=== PATIENT | female | born 1985 | race Caucasian/White ===

== ENCOUNTER 2017-02-03 01:16 | Inpatient (IN) | payer OTHER ==
[2017-02-03] MEDS ORDERED: Nalbuphine 20 MG/1 ML Amp IVPUSH PRN (01:44)
[2017-02-03] MEDS ORDERED: Ondansetron 4 MG/2 ML SDV IVPUSH PRN (01:44)
[2017-02-03] MEDS ORDERED: Sodium Chloride 0.9% 10 ML Syringe FLUSH PRN (01:44)
[2017-02-03] MEDS ORDERED: Oxytocin/Lactated Ringers 10 UNIT/1,000 ML BAG IV SCH (01:45)
[2017-02-03] MEDS: Lactated Ringers 1,000 ML IV SCH ×4 (02:43→07:25)
[2017-02-03] MEDS ORDERED: Sodium Chloride 0.9% 10 ML ONE (04:04)
--- NOTE | 2017-02-03 04:13 | PCM.PREANE ---
Preanesthetic Assessment - Procedure Proposed Procedure: Continuous labor Epidural - Anesthesia/Transfusion/Family Hx Anesthesia History: Prior Anesthesia Without Reaction Transfusion History: No Prior Transfusion(s) - Review of Systems General: No Symptoms Pulmonary: No Symptoms Cardiovascular: No Symptoms Gastrointestinal: No symptoms Neurological: No Symptoms Other: Reports: None - Physical Assessment O2 Sat by Pulse Oximetry: 98 Respiratory Rate: 14 Vital Signs: Last Vital Signs Temp 36.9 C 02/03/17 01:44 Pulse 96 02/03/17 01:44 Resp 14 02/03/17 01:44 BP 122/83 02/03/17 01:44 Pulse Ox 98 02/03/17 01:44 Height: 1.55 m Weight: 92.533 kg ASA Class: 2 Mental Status: Alert & Oriented x3 Airway Class: Mallampati = 1 Dentition: Reports: Normal Dentition, [place](s) (on upper front broken tooth) Thyro-Mental Finger Breadths: 3 Mouth Opening Finger Breadths: 3 ROM/Head Extension: Full Lungs: Clear to auscultation, Normal respiratory effort Cardiovascular: Regular Rate, Regular Rhythm, No Murmurs - Lab Values: Laboratory Last Values WBC 8.56 K/mm3 (3.98-10.04) 02/03/17 02:25 RBC 4.15 M/mm3 (3.98-5.22) 02/03/17 02:25 Hgb 12.5 gm/L (11.2-15.7) 02/03/17 02:25 Hct 36.2 % (34.1-44.9) 02/03/17 02:25 MCV 87.2 fl (79.4-94.8) 02/03/17 02:25 MCH 30.1 pg (25.6-32.2) 02/03/17 02:25 MCHC 34.5 g/dl (32.2-35.5) 02/03/17 02:25 RDW Std Deviation 40.9 fL (36.4-46.3) 02/03/17 02:25 Plt Count 218 K/mm3 (182-369) 02/03/17 02:25 MPV 10.4 fl (9.4-12.3) 02/03/17 02:25 Neut % (Auto) 55.6 % (34.0-71.1) 02/03/17 02:25 Lymph % (Auto) 34.7 % (19.3-51.7) 02/03/17 02:25 [place] % (Auto) 9.0 % (4.7-12.5) 02/03/17 02:25 Eos % (Auto) 0.4 (0.7-5.8) L 02/03/17 02:25 Baso % (Auto) 0.1 % (0.1-1.2) 02/03/17 02:25 Neut # (Auto) 4.76 K/mm3 (1.56-6.13) 02/03/17 02:25 Lymph # (Auto) 2.97 K/mm3 (1.18-3.74) 02/03/17 02:25 [place] # (Auto) 0.77 K/mm3 (0.24-0.36) H 02/03/17 02:25 Eos # (Auto) 0.03 K/mm3 (0.04-0.36) L 02/03/17 02:25 Baso # (Auto) 0.01 K/mm3 (0.01-0.08) 02/03/17 02:25 - Allergies Allergies/Adverse Reactions: Allergies Allergy/AdvReac Type Severity Reaction Status Date / Time bacitracin Allergy Itching Verified 05/29/14 21:21 sulfamethoxazole Allergy Rash Verified 02/06/15 18:17 [From Bactrim] trimethoprim [From Bactrim] Allergy Rash Verified 02/06/15 18:17 - Blood Blood Available: No - Acknowledgements Anesthesia Type Planned: Epidural Pt an Appropriate Candidate for the Planned Anesthesia: Yes Alternatives and Risks of Anesthesia Discussed w Pt/Guardian: Yes Pt/Guardian Understands and Agrees with Anesthesia Plan: Yes PreAnesthesia Questionnaire Endocrine/Metabolic History: Reports: Obesity/BMI 30+ - Past Surgical History HEENT Surgical History: Reports: Adenoidectomy, Tonsillectomy, Other (See Below) Other HEENT Surgeries/Procedures: [place] teeth extraction GI Surgical History: Reports: Hernia, Inguinal Female Surgical History: Reports: Breast Biopsy, LEEP, Other (See Below) ( pilonidal cyst escision) Dermatological Surgical History: Reports: Other (See Below) - SUBSTANCE USE Smoking Status *Q: Never Smoker Tobacco Use Within Last Twelve Months: No Second Hand Smoke Exposure: No Days Per Week of Alcohol Use: 0 Recreational Drug Use History: No - HOME MEDS Home Medications: Home Meds Silver Sulfadiazine [Silvadene 1% Cream] 1 applic TOP DAILY #1 tube 02/06/15 [Rx ] oxyCODONE HCl/Acetaminophen [Percocet 5-325 mg Tablet] 1 - 2 each PO Q4HR PRN # 15 tablet 02/06/15 [Rx] - CURRENT (IN HOUSE) MEDS Current Meds: Current Medications Lactated Ringer's (Ringers, Lactated) 1,000 mls @ 100 mls/hr IV ASDIRECTED [facility] Last Admin: 02/03/17 02:43 Dose: 100 mls/hr Oxytocin/Lactated Ringer's (Pitocin In Lr 10 Units/1,000 Ml) 10 unit in 1,000 mls @ 500 mls/hr IV TITRATE [facility] Nalbuphine HCl (Nubain) 10 mg IVPUSH Q2H PRN PRN Reason: Pain (moderate 4-6) Ondansetron HCl (Zofran) 4 mg IVPUSH Q4H PRN PRN Reason: Nausea/Vomiting Sodium Chloride (Saline Flush) 10 ml FLUSH ASDIRECTED PRN PRN Reason: Keep Vein Open
[2017-02-03] MEDS ORDERED: Bupivacaine/fentaNYL/NS 100 ML Bag EPIDUR SCH (04:15)
--- NOTE | 2017-02-03 07:43 | PCM.LDHP ---
L&D History of Present Illness - General Date of Service: 02/03/17 Admit Problem/Dx: Patient Status Order with Admit Dx/Problem 02/03/17 01:44 Patient Status [ADT] Routine Admission Diagnosis/Problem Admission Diagnosis/Problem Source of Information: Patient History Limitations: Reports: No Limitations - History of Present Illness Introduction:: Chani is a 31-year-old 2 now para 1001 white female who is admitted in active labor with spontaneous rupture membranes She reports having been sleeping at approximately 0045 hours on 02/03/2017 when she had a gush of fluid followed by continuous leakage of fluid consistent with spontaneous rupture membranes. Fluid was reported to be clear. She is not sarah approximately every 3 minutes. She has progressed rapidly to complete cervical dilation. Baby was at a +2 station. heart tones are reassuring. [employer] history 2 para 1001 with STEPHAN of 02/03/2017 is based upon a last menstrual period starting 04/29/2016. Patient had ultrasounds supportive of her dating. has been unremarkable. She is made good fundal height growth. Weight gain has been from approximately 186.5 pounds 2 196 pounds for 10 pound weight gain. Fundal height growth has been appropriate and vital signs have been stable. She has 1 previous delivery a 6 lbs. 15 oz. female delivered on 05/30/2014 at 38-0/7 weeks gestational age. Laboratory testing and : Blood is AB+. Advised screen is negative. Hemoglobin at first visit was 13.7 and platelets were 290,000. Rubella titer shows immunity. RPR is nonreactive. Hepatitis B surface antigen assay was negative. Second trimester lab testing included a hemoglobin of 12.4 g/dL. Platelets are 229,000. One hour GTT was normal at 95. Antibody screen was negative. Group B strep screen was negative. HIV titer, chlamydia, gonorrhea is not detected. Past medical history: 1. Benign breast lump right breastexcised 2. Normal spontaneous vaginal delivery 2013 Past surgical history: 1. Rest biopsy right breastbenign 2. Tonsillectomy adenoidectomy 3. [place] tooth extraction 4. Right inguinal hernia repair age 9 Allergies: Bactrim which causes itching Medications: 1. vitamins daily Family history: Mother is alive and well but does suffer from depression. Father has hypertension and is obese. One brother is alive and well. Maternal grandparents health history not known. Internal grandmother is secondary to breast cancer. Paternal grandfather is for reasons unknown. There is family history of heart disease and diabetes. No bleeding disorders, blood clotting disorders, anesthesia or -related problems reported in the family. Social history: Patient is . Lives in [place]. Her significant other is Alvino Burks. She does not use any significant loss of alcohol, drugs or tobacco. Review of systems: Skin-negative Cardiovascular-no exercise intolerance, chest pain or shortness of breath Respiratoryno wheezing, infectious symptoms Breasts-changes associated with -patient plans to nurse GI-negative -changes associated with Musculoskeletal -negative Neurological system -negative Physical exam: In general the patient is a well-developed, well-nourished, pleasant female who appears comfortable with epidural on board. HEENT, neck and back within normal limits Skin is warm and dry without lesions. Lungs are clear with good breath sounds in all lung [place]. Cardiovascular exam shows regular without murmurs. Breast exam is deferred. Abdomen is consistent with with fundal height consistent with dates. Cervical exam shows complete cervical dilation, 100% effacement, +2 station, vertex presentation. Extremities and neurological exam grossly within normal limits. - Related Data Allergies/Adverse Reactions: Allergies Allergy/AdvReac Type Severity Reaction Status Date / Time bacitracin Allergy Itching Verified 05/29/14 21:21 sulfamethoxazole Allergy Rash Verified 02/06/15 18:17 [From Bactrim] trimethoprim [From Bactrim] Allergy Rash Verified 02/06/15 18:17 Home Medications: Home Meds Silver Sulfadiazine [Silvadene 1% Cream] 1 applic TOP DAILY #1 tube 02/06/15 [Rx ] oxyCODONE HCl/Acetaminophen [Percocet 5-325 mg Tablet] 1 - 2 each PO Q4HR PRN # 15 tablet 02/06/15 [Rx] Past Medical History Endocrine/Metabolic History: Reports: Obesity/BMI 30+ - Past Surgical History HEENT Surgical History: Reports: Adenoidectomy, Tonsillectomy, Other (See Below) Other HEENT Surgeries/Procedures: [place] teeth extraction GI Surgical History: Reports: Hernia, Inguinal Female Surgical History: Reports: Breast Biopsy, LEEP, Other (See Below) ( pilonidal cyst escision) Dermatological Surgical History: Reports: Other (See Below) Social & Family History - Family History Family Medical History: Noncontributory - Tobacco Use Smoking Status *Q: Never Smoker Second Hand Smoke Exposure: No - Caffeine Use Caffeine Use: Reports: Soda Other Caffeine Use: occasional - Alcohol Use Days Per Week of Alcohol Use: 0 - Recreational Drug Use Recreational Drug Use: No H&P Review of Systems - Review of Systems: Review Of Systems: See Below L&D Exam - Exam Exam: See Below - Vital Signs Vital Signs: Last Vital Signs Temp 36.9 C 02/03/17 01:44 Pulse 96 02/03/17 01:44 Resp 14 02/03/17 04:14 BP 122/83 02/03/17 01:44 Pulse Ox 98 02/03/17 04:14 Weight: 92.533 kg - Patient Data Lab Results Last 24 hrs: Laboratory Results - last 24 hr 02/03/17 Range/Units 02:25 WBC 8.56 (3.98-10.04) K/mm3 RBC 4.15 (3.98-5.22) M/mm3 Hgb 12.5 (11.2-15.7) gm/L Hct 36.2 (34.1-44.9) % MCV 87.2 (79.4-94.8) fl MCH 30.1 (25.6-32.2) pg MCHC 34.5 (32.2-35.5) g/dl RDW Std Deviation 40.9 (36.4-46.3) fL Plt Count 218 (182-369) K/mm3 MPV 10.4 (9.4-12.3) fl Neut % (Auto) 55.6 (34.0-71.1) % Lymph % (Auto) 34.7 (19.3-51.7) % [place] % (Auto) 9.0 (4.7-12.5) % Eos % (Auto) 0.4 L (0.7-5.8) Baso % (Auto) 0.1 (0.1-1.2) % Neut # (Auto) 4.76 (1.56-6.13) K/mm3 Lymph # (Auto) 2.97 (1.18-3.74) K/mm3 [place] # (Auto) 0.77 H (0.24-0.36) K/mm3 Eos # (Auto) 0.03 L (0.04-0.36) K/mm3 Baso # (Auto) 0.01 (0.01-0.08) K/mm3 Result Diagrams: 02/03/17 02:25 Problem List Initiated/Reviewed/Updated: Yes Orders Last 24hrs: Active Orders 24 hr Category Date Time Status Patient Status [ADT] Routine ADT 02/03/17 01:44 Active Activity as Tolerated [RC] PFP Care 02/03/17 01:44 Active Communication Order [RC] ASDIRECTED Care 02/03/17 01:44 Active Communication Order [RC] ASDIRECTED Care 02/03/17 04:07 Active Cooling Warming Measures [RC] ASDIRECTED Care 02/03/17 04:07 Active Heart Tones [RC] ASDIRECTED Care 02/03/17 01:45 Active Notify Provider [RC] ASDIRECTED Care 02/03/17 04:07 Active Notify Provider [RC] PFP Care 02/03/17 01:44 Active Notify Provider [RC] PRN Care 02/03/17 01:44 Active Oxygen Therapy [RC] ASDIRECTED Care 02/03/17 04:07 Active Peripheral IV Care [RC] . DIRECTED Care 02/03/17 01:45 Active Pulse Oximetry [RC] ASDIRECTED Care 02/03/17 04:07 Active Vital Signs [RC] ASDIRECTED Care 02/03/17 04:07 Active Vital Signs [RC] PER UNIT ROUTINE Care 02/03/17 01:44 Active Clear Liquid Diet [DIET] Diet 02/03/17 Breakfast Active Bupivacaine/fentaNYL/NS [fentaNYL/Bupivacaine/NS 2 MCG- Med 02/03/17 04:15 Active 0.125% 100 ML] 100 ml EPIDUR ASDIRECTED Lactated Ringers [Ringers, Lactated] 1,000 ml Med 02/03/17 01:45 Active IV ASDIRECTED Nalbuphine [Nubain] Med 02/03/17 01:44 Active 10 mg IVPUSH Q2H PRN Ondansetron [Zofran] Med 02/03/17 01:44 Active 4 mg IVPUSH Q4H PRN Oxytocin/Lactated Ringers [Pitocin in LR 10 Units/1,000 Med 02/03/17 01:45 Active ML] 10 unit in 1,000 ml IV TITRATE Sodium Chloride 0.9% [Saline Flush] Med 02/03/17 01:44 Active 10 ml FLUSH ASDIRECTED PRN Electronic Heart Tones Ext w TOCO [WOMSER] Ot 02/03/17 01:44 Ordered Routine Electronic Heart Tones Internal [WOMSER] Per Unit Ot 02/03/17 01:44 Ordered Routine Peripheral IV Insertion Adult [OM.PC] Routine Ot 02/03/17 01:44 Ordered Pulse Oximetry Continuous Monitoring [OM.PC] Routine Ot 02/03/17 04:07 Active Resuscitation Status Routine Resus Stat 02/03/17 01:44 Ordered Medication Orders Fentanyl/Bupivacaine HCl (Fentanyl/Bupivacaine/Ns 2 Mcg-0.125% 100 Ml) 100 ml EPIDUR ASDIRECTED [facility] Last Admin: 02/03/17 04:43 Dose: 100 ml Lactated Ringer's (Ringers, Lactated) 1,000 mls @ 100 mls/hr IV ASDIRECTED [facility] Last Admin: 02/03/17 07:25 Dose: 100 mls/hr Infusion: 02/03/17 07:25 Dose: 100 mls/hr Admin: 02/03/17 04:59 Dose: 100 mls/hr Infusion: 02/03/17 04:59 Dose: 100 mls/hr Admin: 02/03/17 04:15 Dose: 100 mls/hr Infusion: 02/03/17 04:15 Dose: 100 mls/hr Admin: 02/03/17 02:43 Dose: 100 mls/hr Oxytocin/Lactated Ringer's (Pitocin In Lr 10 Units/1,000 Ml) 10 unit in 1,000 mls @ 500 mls/hr IV TITRATE [facility] Nalbuphine HCl (Nubain) 10 mg IVPUSH Q2H PRN PRN Reason: Pain (moderate 4-6) Ondansetron HCl (Zofran) 4 mg IVPUSH Q4H PRN PRN Reason: Nausea/Vomiting Sodium Chloride (Saline Flush) 10 ml FLUSH ASDIRECTED PRN PRN Reason: Keep Vein Open Assessment/Plan Comment:: Assessment: 1. 2 para 1001 Term intrauterine at 40-0/7 weeks gestational age by certain last menstrual periodactive laborcomplete cervical dilation 2. Epidural working well patient getting good relief 3. Group B strep screen negative 4. Patient desires to nurse 5. Diabetic screening test normal. Plan: 1. Anticipate normal spontaneous vaginal delivery 2. Support nursing decision. 3. Epidural for labor analgesia.
--- NOTE | 2017-02-03 09:00 | PCM.SN ---
- Free Text/Narrative Note: Chani is a 31-year-old 2 now para 2002 white female who had spontaneous rupture membranes at approximately 00 45 hours on 02/03/2017. She is admitted into labor and delivery in active labor shortly thereafter. She progressed to complete cervical dilation by approximately 8:00 on 02/03/2017. She pushed for approximate 45 minutes and delivered a viable, santos, male with a weight of 3410 g (7 pounds 8.3 ounces), a length of 20 inches, Apgars of 8 and 9 in a left occiput anterior position. Baby completely delivered without problems and was placed on the mother's abdomen. The cord was clamped 2 and cut by the father. Cord was noted to have 3 vessels present. Perineum was intact and no lacerations were present. The placenta delivered at 0836 hrs. in a [place] fashion. It appeared intact and complete. It was discarded per patient desire. Estimated blood loss was 100 mL. Pitocin was given after delivery of the baby to facilitate increase in uterine tone and 2 decrease bleeding. Epidural was used for labor and analgesia. Epidural catheter was removed after the delivery of the placenta. Estimated blood loss was 100 mL. Patient plans to nurse. Condition: Good
[2017-02-03] MEDS ORDERED: Docusate Sodium 100 MG Cap PO PRN (09:31)
[2017-02-03] MEDS ORDERED: Acetaminophen 325 MG Tab PO PRN (09:31)
[2017-02-03] MEDS ORDERED: Lanolin 100% Cream 7 GM Tube TOP PRN (09:31)
[2017-02-03] MEDS ORDERED: Benzocaine/Menthol 20%-0.5% Spray 56 GM Canister TOP PRN (09:31)
[2017-02-03] MEDS ORDERED: Witch Hazel Medicated Pads 100/Jar TOP PRN (09:31)
[2017-02-03] MEDS: Ibuprofen 600 MG Tab PO PRN ×2 (13:00→21:12)
[2017-02-04 04:00] VITALS: BP 119/62
[2017-02-04] MEDS: Ibuprofen 600 MG Tab PO PRN ×2 (04:37→09:24)
--- NOTE | 2017-02-04 08:06 | PCM.DCSUM1 ---
Discharge Summary - Hospital Course Free Text/Narrative:: Chani is a 31-year-old 2 now para 2002 white female who had spontaneous rupture membranes at approximately 00 45 hours on 02/03/2017. She is admitted into labor and delivery in active labor shortly thereafter. She progressed to complete cervical dilation by approximately 8:00 on 02/03/2017. She pushed for approximate 45 minutes and delivered a viable, santos, male infant with a weight of 3410 g (7 pounds 8.3 ounces), a length of 20 inches, Apgars of 8 and 9 in a left occiput anterior position. Baby completely delivered without problems and was placed on the mother's abdomen. The cord was clamped 2 and cut by the father. Cord was noted to have 3 vessels present. Perineum was intact and no lacerations were present. The placenta delivered at 0836 hrs. in a [place] fashion. It appeared intact and complete. It was discarded per patient desire. Estimated blood loss was 100 mL. Pitocin was given after delivery of the baby to facilitate increase in uterine tone and 2 decrease bleeding. Epidural was used for labor and analgesia. Epidural catheter was removed after the delivery of the placenta. Estimated blood loss was 100 mL. Patient plans to nurse. Condition: Good patient is done very well. She has had minimal lochia. She is voiding well, nursing without problems and ambulating without concerns. Her vital signs been stable. She is afebrile. She is desiring to be discharged home. - Discharge Data Discharge Date: 02/04/17 Discharge Disposition: Home, Self-Care 01 Condition: Good - Patient Instructions Diet: Regular Diet as Tolerated (Nursing diet with increase calories and calcium.) Activity: As Tolerated (No intercourse or tampons until bleeding resolves.) Driving: May Drive Today (May drive today if necessary. Would recommend waiting 2 days.) Showering/Bathing: May Shower (May take a bath) Notify Provider of: Fever, Increased Pain, Swelling and Redness, Nausea and/or Vomiting - Discharge Plan Home Medications: Home Meds Ibuprofen [IJD: Ibuprofen] 600 mg PO Q4H PRN #30 tablet 02/04/17 [Rx] Referrals: Marilee Goss MD [Physician] - (Return to cliniclater this week- Dr Kay.) - Discharge Summary/Plan Comment DC Time >30 min.: No Discharge Summary/Plan Comment: Discharge instructions: 1. Discharge home. 2. Regular, high fiber, nursing diet with increased calcium and calories as recommended. 3. Diet, activity and follow-up were discussed in detail with patient. 4. Precautions given concern increased pain, bleeding, temperature, signs/ symptoms of DVT/PE. 5. Medications per home medication was printed, discussed with and given to the patient. 6. Return to clinic-Dr. Baca-6 weeks-[facility]. Diagnosis: 39 week -delivered Condition: Good - Patient Data Vitals - Most Recent: Last Vital Signs Temp 37.1 C 02/04/17 04:00 Pulse 94 02/04/17 03:31 Resp 12 02/04/17 03:31 BP 119/62 02/04/17 03:31 Pulse Ox 99 02/04/17 03:31 Weight - Most Recent: 92.533 kg I&O - Last 24 hours: Intake & Output 02/03/17 02/04/17 02/04/17 22:59 06:59 14:59 Intake Total 0 Balance 0 Lab Results - Last 24 hrs: Laboratory Results - last 24 hr 02/04/17 Range/Units 07:10 WBC 8.56 (3.98-10.04) K/mm3 RBC 3.82 L (3.98-5.22) M/mm3 Hgb 11.3 (11.2-15.7) gm/L Hct 34.1 (34.1-44.9) % MCV 89.3 (79.4-94.8) fl MCH 29.6 (25.6-32.2) pg MCHC 33.1 (32.2-35.5) g/dl RDW Std Deviation 43.0 (36.4-46.3) fL Plt Count 174 L (182-369) K/mm3 MPV 10.0 (9.4-12.3) fl Med Orders - Current: Current Medications Acetaminophen (Tylenol) 650 mg PO Q4H PRN PRN Reason: mild pain or fever Last Admin: 02/03/17 23:17 Dose: 650 mg Benzocaine/Menthol (Dermoplast Pain Relief [place]) 0 gm TOP ASDIRECTED PRN PRN Reason: Perineal Comfort Measure Docusate Sodium (Colace) 100 mg PO BID PRN PRN Reason: Constipation Emollient Ointment (Lansinoh Hpa) 0 gm TOP ASDIRECTED PRN PRN Reason: Sore Nipples Ibuprofen (Motrin) 600 mg PO Q4H PRN PRN Reason: Mild pain or fever Last Admin: 02/04/17 04:37 Dose: 600 mg Witch Jody (Tucks) 1 pad TOP ASDIRECTED PRN PRN Reason: Hemorrhoid pain Discontinued Medications Fentanyl/Bupivacaine HCl (Fentanyl/Bupivacaine/Ns 2 Mcg-0.125% 100 Ml) 100 ml EPIDUR ASDIRECTED [facility] Last Admin: 02/03/17 04:43 Dose: 100 ml Lactated Ringer's (Ringers, Lactated) 1,000 mls @ 100 mls/hr IV ASDIRECTED [facility] Last Admin: 02/03/17 07:25 Dose: 100 mls/hr Oxytocin/Lactated Ringer's (Pitocin In Lr 10 Units/1,000 Ml) 10 unit in 1,000 mls @ 500 mls/hr IV TITRATE [facility] Last Admin: 02/03/17 08:35 Dose: 500 mls/hr Sodium Chloride (Normal Saline) Confirm Administered Dose 10 mls @ as directed .ROUTE .STK-MED ONE Stop: 02/03/17 04:05 Last Admin: 02/03/17 18:34 Dose: Not Given Nalbuphine HCl (Nubain) 10 mg IVPUSH Q2H PRN PRN Reason: Pain (moderate 4-6) Ondansetron HCl (Zofran) 4 mg IVPUSH Q4H PRN PRN Reason: Nausea/Vomiting Sodium Chloride (Saline Flush) 10 ml FLUSH ASDIRECTED PRN PRN Reason: Keep Vein Open *Q Meaningful Use (DIS) - VTE *Q VTE Criteria *Q: - Stroke *Q Stroke Criteria *Q: - AMI *Q AMI Criteria *Q:
--- NOTE | 2017-02-04 08:34 | PCM48HPAN ---
Post Anesthesia Note - EVALUATION WITHIN 48HRS OF ANESTHETIC Vital Signs in Normal Range: Yes Patient Participated in Evaluation: Yes Respiratory Function Stable: Yes Airway Patent: Yes Cardiovascular Function Stable: Yes Hydration Status Stable: Yes Pain Control Satisfactory: Yes Nausea and Vomiting Control Satisfactory: Yes Mental Status Recovered: Yes - COMMENTS/OBSERVATIONS Free Text/Narrative:: Both mother and baby doing well. Pt reports epidural has completely resolved with return of normal sensation and strength. has been up to bathroom without difficulty. reports minor soreness at epidural site. site looks good. no fever /chills, n/v, or headache.
[2017-02-04] MEDS ORDERED: Bupivacaine 0.25% 10 ML SDV ONE (09:31)
== END 2017-02-04 12:00 | disposition home or self-care (01) | DRG 775 ==
LOC: JD.OBCHECK 01:16 → JD.OB 01:16 → JD.OBCHECK 01:43 → JD.OB 01:44 → OBSVTOIN 08:34
PROVIDERS: ADMIT Obstetrics & Gynecology; ATTEND Obstetrics & Gynecology
PROC: 10E0XZZ Delivery of Products of Conception, External Approach (ICD-10-PCS; principal; 2017-02-03)
PROC: 00HU33Z Insertion of Infusion Device into Spinal Canal, Percutaneous Approach (ICD-10-PCS; 2017-02-03)
PROC: 3E0R3CZ (ICD-10-PCS; 2017-02-03)
DX: O42.02 Full-term premature rupture of membranes, onset of labor within 24 hours of rupture (principal); Z3A.40 40 weeks gestation of pregnancy; Z37.0 Single live birth; Z88.1 Allergy status to other antibiotic agents
CPT/HCPCS: 01967; 36415; 85025; 85027; A9270-GY; J2590; J7120

== ENCOUNTER 2020-09-24 21:15 | Inpatient (IN) | payer OTHER ==
[2020-09-24] MEDS ORDERED: Sodium Chloride 0.9% 10 ML Syringe FLUSH PRN (21:56)
[2020-09-24] MEDS ORDERED: Nalbuphine 10 MG/1 ML Vial IVPUSH PRN (21:56)
[2020-09-24] MEDS ORDERED: Acetaminophen 325 MG Tab PO PRN (21:56)
[2020-09-24] MEDS ORDERED: Oxytocin/Lactated Ringers 10 UNIT/1,000 ML BAG IV SCH ×2 (22:00→23:45)
--- NOTE | 2020-09-24 22:06 | PCM.PREANE ---
Preanesthetic Assessment - Procedure Proposed Procedure: Continuous labor epidural - Anesthesia/Transfusion/Family Hx Anesthesia History: Prior Anesthesia Without Reaction Transfusion History: No Prior Transfusion(s) - Review of Systems General: No Symptoms Pulmonary: No Symptoms Cardiovascular: No Symptoms Gastrointestinal: No Symptoms Neurological: No Symptoms Other: Reports: None - Physical Assessment Height: 1.55 m Weight: 92.941 kg ASA Class: 2 Mental Status: Alert & Oriented x3 Airway Class: Mallampati = 1 Dentition: Reports: Normal Dentition, Mckenney(s), Broken Tooth/Teeth Thyro-Mental Finger Breadths: 3 Mouth Opening Finger Breadths: 3 ROM/Head Extension: Full Lungs: Clear to Auscultation, Normal Respiratory Effort Cardiovascular: Regular Rate, Regular Rhythm - Allergies Allergies/Adverse Reactions: Allergies Allergy/AdvReac Type Severity Reaction Status Date / Time bacitracin Allergy Itching Verified 05/29/14 21:21 sulfamethoxazole Allergy Rash Verified 02/06/15 18:17 [From Bactrim] trimethoprim [From Bactrim] Allergy Rash Verified 02/06/15 18:17 - Acknowledgements Anesthesia Type Planned: Epidural Pt an Appropriate Candidate for the Planned Anesthesia: Yes Alternatives and Risks of Anesthesia Discussed w Pt/Guardian: Yes Pt/Guardian Understands and Agrees with Anesthesia Plan: Yes PreAnesthesia Questionnaire Endocrine/Metabolic History: Reports: Obesity/BMI 30+ - Past Surgical History HEENT Surgical History: Reports: Adenoidectomy, Tonsillectomy, Other (See Below) Other HEENT Surgeries/Procedures: [place] teeth extraction GI Surgical History: Reports: Hernia, Inguinal Female Surgical History: Reports: Breast Biopsy, LEEP, Other (See Below) (pilonidal cyst escision) Dermatological Surgical History: Reports: Other (See Below) - HOME MEDS Home Medications: Home Meds Ibuprofen [IJD: Ibuprofen] 600 mg PO Q4H PRN #30 tablet 02/04/17 [Rx]
--- NOTE | 2020-09-24 22:16 | PCM.LDHP ---
L&D History of Present Illness - General Date of Service: 09/24/20 Admit Problem/Dx: Patient Status Order with Admit Dx/Problem 09/24/20 21:56 Patient Status [ADT] Routine Admission Diagnosis/Problem Admission Diagnosis/Problem 38 weeks gestation of Source of Information: Patient History Limitations: Reports: No Limitations - History of Present Illness Introduction:: Chani Burks is a 35-year-old -0-0-2 female at 38 weeks 4 days (STEPHAN 10/04/2020) by LMP consistent with her anatomy ultrasound. She reports that she had some leaking of fluid when she was sitting on the couch and then when she went to the restroom she had a large gush of clear fluid. She states that the fluid has been continuously leaking since that initial gush. She denies any vaginal bleeding. She reports that the infant has been moving well. She reports that the may have dropped a little bit lower into the pelvis since this afternoon. She feels like she is having some cramping but no significant contractions at this time. Timing/Duration: Reports: sudden onset (With a large gush of fluid at around 830 with continuous leaking since then) Location, : Reports: Pelvic Quality: Reports: Pressure Severity: Mild Associated Symptoms: Reports: vaginal fluid, large amount. Denies: vaginal bleeding, vaginal discharge Present Illness Comments:: Chani Burks is a 35-year-old -0-0-2 female at 38 weeks 4 days (STEPHAN 10/04/2020) by LMP consistent with her anatomy ultrasound. She has had routine care with Dr. Chino starting at 10 weeks gestational age. She denies any complications during the . She reports that she did have COVID-19 infection in April 2020. She did not have any significant complications from the infection but has not regained the smell since she had the infection. Her is complicated by: * History of COVID-19 infection in April 2020 with no significant effects at time of infection. She did lose sense of smell and has not regained her sense of smell since the infection. * Anxiety/depression, currently on Zoloft 100 mg daily and this is working well for her [employer] history -0-0-2 G1: 05/30/2014, 38 weeks 2 days, , 6 pounds 15 ounces, epidural for anesthesia, no complications G2: 02/03/2017, 40 weeks 0 days, , 7 pounds 8 ounces, epidural for anesthesia, no complications G3: Current labs Blood type: AB+ Antibody screen: Negative First trimester hematocrit/hemoglobin: 38.3%/13.1 on 03/10/2020 Platelets: 274 on 03/10/2020 Urine culture: Contaminated Rubella status: Immune Hepatitis B surface antigen: Negative RPR: Negative HIV: Negative Gonorrhea: Negative Chlamydia: Negative One hour glucose tolerance test: 89 Second trimester hemoglobin: 11.6 on 07/07/2020 Platelets: 249 on 07/07/2020 GBS status: Negative - Related Data Allergies/Adverse Reactions: Allergies Allergy/AdvReac Type Severity Reaction Status Date / Time bacitracin Allergy Itching Verified 05/29/14 21:21 sulfamethoxazole Allergy Rash Verified 02/06/15 18:17 [From Bactrim] trimethoprim [From Bactrim] Allergy Rash Verified 02/06/15 18:17 Home Medications: Home Meds Ibuprofen [IJD: Ibuprofen] 600 mg PO Q4H PRN #30 tablet 02/04/17 [Rx] Past Medical History [employer] History: Reports: : 3 Para: 2 Psychiatric History: Reports: Anxiety, Depression Endocrine/Metabolic History: Reports: Obesity/BMI 30+ - Past Surgical History HEENT Surgical History: Reports: Adenoidectomy, Tonsillectomy, Other (See Below) Other HEENT Surgeries/Procedures: [place] teeth extraction GI Surgical History: Reports: Hernia, Inguinal Female Surgical History: Reports: Breast Biopsy, LEEP, Other (See Below) (pilonidal cyst escision) Social & Family History - Family History Family Medical History: No Pertinent Family History - Tobacco Use Tobacco Use Status *Q: Never Tobacco User - Tobacco Core Measures Tobacco Use/Smoking Within Last 30 Days: No Smokeless Tobacco Use in Last 30 Days: No - Caffeine Use Caffeine Use: Reports: Soda Other Caffeine Use: occasional - Alcohol Use Alcohol Use History: No - Recreational Drug Use Recreational Drug Use: No Drug Use in Last 12 Months: No - Living Situation & Occupation Living situation: Reports: , with Spouse, with Family Occupation: Employed H&P Review of Systems - Review of Systems: Review Of Systems: See Below General: Denies: Fever, Chills, Malaise, Weakness, Fatigue HEENT: Reports: Glasses, Other (Anosmia from COVID-19). Denies: Headaches, Rhinitis, Post Nasal Drip, Sinus Congestion, Visual Changes Pulmonary: Denies: Shortness of Breath, Wheezing, Pleuritic Chest Pain, Cough Cardiovascular: Denies: Chest Pain, Palpitations, Dyspnea on Exertion, Orthopnea Gastrointestinal: Denies: Abdominal Pain, Constipation, Diarrhea, Nausea, Vomiting Genitourinary: Denies: Dysuria, Frequency, Burning, Pain, Urgency Musculoskeletal: Reports: Back Pain (in upper right back, improves with rest) Psychiatric: Denies: Depression, Anxiety L&D Exam - Exam Exam: See Below - Vital Signs Weight: 92.941 kg - OB Specific Contraction Duration (sec): 45-60 Contraction Frequency (min): 3-4 Contraction Intensity: Mild to Moderate Movement: Active Heart Tones: Present Heart Tones per Min: 145 (+15 x 15 accelerations, intermittent variable decelerations) Heart Rate (FHR) Variability: Moderate (6-25 bmp) Presentation: Vertex Estimated Weight: 7-7.5 lbs by Kwadwo's - Russ Score Russ Score Cervix Position: Midposition Russ Score Consistency: Medium Russ Score Effacement: 51-70% (70%) Russ Score Dilation: 3-4 cm (3.5 cm) Russ Score Infant's Station: -3 Russ Score Total: 6 - Exam General: Alert, Oriented HEENT: Conjunctiva Clear, EOMI Neck: Supple, Trachea Midline Lungs: Clear to Auscultation, Normal Respiratory Effort Cardiovascular: Regular Rate, Regular Rhythm GI/Abdominal Exam: Soft, Non-Tender, No Distention, Other (Gravid). No: Guarding, Rigid, Rebound Genitourinary: Normal external exam, Other (Moderate amount of clear fluid with cervical exam) Extremities: Normal Inspection, Pedal Edema (Trace in bilateral feet to ankles) Skin: Warm, Dry, Intact Psychiatric: Alert, Normal Affect, Normal Mood - Problem List (1) 38 weeks gestation of SNOMED Code(s): 31788542 ICD Code: Z3A.38 - 38 WEEKS GESTATION OF Status: Acute Current Visit: Yes (2) Anxiety SNOMED Code(s): 25129300 ICD Code: F41.9 - ANXIETY DISORDER, UNSPECIFIED Status: Acute Current Visit: Yes (3) Depression SNOMED Code(s): 95256617 ICD Code: F32.9 - MAJOR DEPRESSIVE DISORDER, SINGLE EPISODE, UNSPECIFIED Status: Acute Current Visit: Yes Problem List Initiated/Reviewed/Updated: Yes Orders Last 24hrs: Active Orders 24 hr Category Date Time Status Patient Status [ADT] Routine ADT 09/24/20 21:56 Active Activity as Tolerated [RC] PFP Care 09/24/20 21:56 Active Communication Order [RC] ASDIRECTED Care 09/24/20 21:56 Active Heart Tones [RC] ASDIRECTED Care 09/24/20 21:57 Active Non Stress Test [RC] PER UNIT ROUTINE Care 09/24/20 21:56 Active Notify Provider Vital Signs [RC] PRN Care 09/24/20 21:58 Active Notify Provider [RC] PFP Care 09/24/20 21:56 Active Notify Provider [RC] PRN Care 09/24/20 21:56 Active Peripheral IV Care [RC] . DIRECTED Care 09/24/20 21:57 Active Pump Management, Intrathecal [RC] ASDIRECTED Care 09/24/20 21:57 Active Urinary Catheter Assessment [RC] ASDIRECTED Care 09/24/20 21:56 Active Vital Signs [RC] PER UNIT ROUTINE Care 09/24/20 21:56 Active Regular Diet [DIET] Diet 09/24/20 Dinner Active CBC WITH AUTO DIFF [HEME] Routine Lab 09/24/20 21:56 Ordered RAPID PLASMA REAGIN,RPR [CHEM] Routine Lab 09/24/20 21:56 Ordered Acetaminophen [TylenoL] Med 09/24/20 21:56 Ordered 650 mg PO Q6H PRN Lactated Ringers [Ringers, Lactated] 1,000 ml Med 09/24/20 22:00 Ordered IV ASDIRECTED Nalbuphine [Nubain] Med 09/24/20 21:56 Ordered 10 mg IVPUSH Q2H PRN Oxytocin/Lactated Ringers [Pitocin in LR 10 Units/1,000 Med 09/24/20 22:00 Ordered ML] 10 unit in 1,000 ml IV .CONTINUOUS Sodium Chloride 0.9% [Saline Flush] Med 09/24/20 21:56 Ordered 10 ml FLUSH ASDIRECTED PRN Electronic Heart Tones Ext w TOCO [WOMSER] Oth 09/24/20 21:56 Ordered Routine Electronic Heart Tones Internal [WOMSER] Per Unit Ot 09/24/20 21:56 O rdered Routine Peripheral IV Insertion Adult [OM.PC] Routine Oth 09/24/20 21:56 Ordered Resuscitation Status Routine Resus Stat 09/24/20 21:56 Ordered Medication Orders Acetaminophen (Tylenol) 650 mg PO Q6H PRN PRN Reason: Pain (Mild 1-3) and fever Nalbuphine HCl (Nubain) 10 mg IVPUSH Q2H PRN PRN Reason: Pain Sodium Chloride (Saline Flush) 10 ml FLUSH ASDIRECTED PRN PRN Reason: Keep Vein Open Assessment/Plan Comment:: Chani Burks is a 35-year-old -0-0-2 female at 38 weeks 4 days (STEPHAN 10/04/2020) with spontaneous rupture membranes Refer to observation for spontaneous rupture of membranes Start Pitocin for augmentation of labor if she does not have cervical change within 1 to 2 hours of initial evaluation Continuous monitoring Place IV and have Lactated Ringer's at 125 ml/hr May have small amounts of regular diet Activity as tolerated May have epidural as desired Plans to breast-feed after delivery Anticipate vaginal delivery unless otherwise indicated Darren Del Valle MD 10:22 PM 09/24/2020
[2020-09-25] MEDS ORDERED: Lidocaine 1.5% with EPINEPHrine 1:200,000 5 ML Amp ONE ×2
[2020-09-25] MEDS: Lactated Ringers 1,000 ML IV SCH ×2 (00:07→01:16)
[2020-09-25] MEDS ORDERED: diphenhydrAMINE 50 MG/ML SDV IVPUSH PRN (01:01)
[2020-09-25] MEDS ORDERED: fentaNYL 100 MCG/2 ML SDV EPIDUR PRN (01:01)
[2020-09-25] MEDS ORDERED: Bupivacaine/fentaNYL/NS 100 ML Bag EPIDUR PRN (01:01)
[2020-09-25] MEDS ORDERED: fentaNYL 100 MCG/2 ML SDV ONE (01:02)
[2020-09-25] MEDS: ePHEDrine 50 MG/ML SDV IVPUSH PRN ×2 (02:25→02:28)
--- NOTE | 2020-09-25 05:08 | PCM.DEL ---
L & D Note - General Info Date of Service: 09/25/20 Mother's Due Date: 10/04/20 - Delivery Note Labor: Spontaneous, Augmented by Oxytocin Delivery Outcome: Livebirth Infant Delivery Method: Spontaneous Vaginal Delivery-Single Presentation: Right Occiput Posterior (ROP) Nuchal Cord: Present (x2, reduced after delivery of infant) Anesthesia Type: Epidural Episiotomy Type: None Laceration: 2nd Degree (midline perineal, repaired with 3-0 Vicryl) Suture type: Vicryl Suture size: 3-0 Placenta: Intact, Spontaneous Cord: 3 Vessels, True Knot Estimated Blood Loss: 200 Resuscitation Needed: Yes : Bulb Syringe, Stimulated, Warmed, [place] Used, Warmer Used Provider: Darren Del Valle Score 1 min: 3 Score 5 min: 6 Second Stage Interventions: Reports: Pushing, Stirrups/Leg Supports Delivery Comments (Free Text/Narrative):: Stage I: Chani Burks was admitted for spontaneous rupture of membranes. On admission her cervix was dilated to 3.5 cm. She was GBS negative. She was making slow progress after rupture membranes and was started on Pitocin for augmentation of labor. She was given an epidural for anesthesia. She progressed to complete and pushing. Stage II: On 09/25/2020 she had a normal vaginal delivery of a live female infant at 04:17. Apgars of 3 & 6. Weight unavailable at time of note. There was a nuchal cord x2 that was unable to be reduced prior to delivery due to fast expulsion of the infant. Infant was delivered in ROP position. The cord was doubly clamped and cut by father of the infant. was placed on mother's abdomen initially and then taken to the warmer for further resuscitation. Stage III: She had a spontaneous delivery of an intact placenta in Teresa presentation. Three vessel cord. There was a true knot in the cord. She was given pitocin and fundal massage. She had a second-degree midline perineal laceration that was repaired with 3-0 Vicryl. Mom and baby were stable to recovery. EBL of 200 mL. Darren Del Valle MD 5:01 AM 09/25/2020 - General Info Date of Service: 09/25/20 - Patient Data Vitals - Most Recent: Last Vital Signs Temp 37.1 C 02/26/21 21:40 Pulse 77 09/24/20 21:40 Resp 16 09/24/20 21:40 BP 112/87 09/24/20 21:40 Pulse Ox 97 09/24/20 21:40 Weight - Most Recent: 92.941 kg Lab Results Last 24 Hours: Laboratory Results - last 24 hr 09/24/20 09/24/20 Range/Units 22:10 22:45 WBC 7.54 (3.98-10.04) K/mm3 RBC 4.34 (3.98-5.22) M/mm3 Hgb 12.5 (11.2-15.7) gm/dl Hct 38.0 (34.1-44.9) % MCV 87.6 (79.4-94.8) fl MCH 28.8 (25.6-32.2) pg MCHC 32.9 (32.2-35.5) g/dl RDW Std Deviation 42.4 (36.4-46.3) fL Plt Count 235 (182-369) K/mm3 MPV 10.4 (9.4-12.3) fl Neut % (Auto) 55.2 (34.0-71.1) % Lymph % (Auto) 34.2 (19.3-51.7) % [place] % (Auto) 9.8 (4.7-12.5) % Eos % (Auto) 0.4 L (0.7-5.8) Baso % (Auto) 0.1 (0.1-1.2) % Neut # (Auto) 4.16 (1.56-6.13) K/mm3 Lymph # (Auto) 2.58 (1.18-3.74) K/mm3 [place] # (Auto) 0.74 H (0.24-0.36) K/mm3 Eos # (Auto) 0.03 L (0.04-0.36) K/mm3 Baso # (Auto) 0.01 (0.01-0.08) K/mm3 SARS-CoV-2 RNA (SHEBA) Negative (NEGATIVE) Med Orders - Current: Current Medications Acetaminophen (Tylenol) 650 mg PO Q6H PRN PRN Reason: Pain (Mild 1-3) and fever Diphenhydramine HCl (Benadryl) 25 mg IVPUSH Q6H PRN PRN Reason: pruritis Ephedrine Sulfate (Ephedrine Sulfate) 5 mg IVPUSH ASDIRECTED PRN PRN Reason: Hypotension Last Admin: 09/25/20 02:28 Dose: 5 mg Documented by: Fentanyl (Sublimaze) 100 mcg EPIDUR Q3H PRN PRN Reason: Pain Last Admin: 09/25/20 01:10 Dose: 100 mcg Documented by: Fentanyl/Bupivacaine HCl (Fentanyl/Bupivacaine/Ns 2 Mcg-0.125% 100 Ml) 100 ml EPIDUR ASDIRECTED PRN PRN Reason: Pain Last Admin: 09/25/20 01:16 Dose: 100 ml Documented by: Oxytocin/Lactated Ringer's (Pitocin In Lr 10 Units/1,000 Ml) 10 unit in 1,000 mls @ 100 mls/hr IV .CONTINUOUS KAREN Lactated Ringer's (Ringers, Lactated) 1,000 mls @ 100 mls/hr IV ASDIRECTED KAREN Last Admin: 09/25/20 01:16 Dose: 999 mls/hr Documented by: Oxytocin/Lactated Ringer's (Pitocin In Lr 10 Units/1,000 Ml) 10 unit in 1,000 mls @ 12 mls/hr IV TITRATE KAREN; Protocol Last Admin: 09/25/20 00:07 Dose: 2 munits/min, 12 mls/hr Documented by: Nalbuphine HCl (Nubain) 10 mg IVPUSH Q2H PRN PRN Reason: Pain Sodium Chloride (Saline Flush) 10 ml FLUSH ASDIRECTED PRN PRN Reason: Keep Vein Open Discontinued Medications Fentanyl (Sublimaze) Confirm Administered Dose 100 mcg .ROUTE .[facility] Stop: 09/25/20 01:03 Last Admin: 09/25/20 02:59 Dose: Not Given Documented by: - Problem List & Annotations (1) 38 weeks gestation of SNOMED Code(s): 80261986 Code(s): Z3A.38 - 38 WEEKS GESTATION OF Status: Acute Current Visit: Yes (2) Anxiety SNOMED Code(s): 73818306 Code(s): F41.9 - ANXIETY DISORDER, UNSPECIFIED Status: Acute Current Visit: Yes (3) Depression SNOMED Code(s): 87290110 Code(s): F32.9 - MAJOR DEPRESSIVE DISORDER, SINGLE EPISODE, UNSPECIFIED Status: Acute Current Visit: Yes (4) Vaginal delivery SNOMED Code(s): 930968889 Code(s): O80 - ENCOUNTER FOR FULL-TERM UNCOMPLICATED DELIVERY Status: Acute Current Visit: Yes (5) Second degree perineal laceration during delivery SNOMED Code(s): 7540313 Code(s): O70.1 - SECOND DEGREE PERINEAL LACERATION DURING DELIVERY Status: Acute Current Visit: Yes (6) True knot of umbilical cord, delivered SNOMED Code(s): 07352348, 719232408 Code(s): O69.2XX0 - LABOR AND DEL COMP BY OTH CORD ENTANGLE, W COMPRSN, UNSP Status: Acute Current Visit: Yes (7) Nuchal cord without compression, delivered, current hospitalization SNOMED Code(s): 62373389, 471834323 Code(s): O69.81X0 - LABOR AND DEL COMP BY CORD AROUND NECK, W/O COMPRSN, UNSP Status: Acute Current Visit: Yes - Problem List Review Problem List Initiated/Reviewed/Updated: Yes - My Orders Last 24 Hours: My Active Orders 09/24/20 Dinner Regular Diet [DIET] 09/24/20 21:56 Patient Status [ADT] Routine Activity as Tolerated [RC] PFP Communication Order [RC] ASDIRECTED Non Stress Test [RC] PER UNIT ROUTINE Notify Provider [RC] PFP Notify Provider [RC] PRN Urinary Catheter Assessment [RC] ASDIRECTED Vital Signs [RC] 03,09,15,21 Acetaminophen [TylenoL] 650 mg PO Q6H PRN Nalbuphine [Nubain] 10 mg IVPUSH Q2H PRN Sodium Chloride 0.9% [Saline Flush] 10 ml FLUSH ASDIRECTED PRN Electronic Heart Tones Ext w TOCO [WOMSER] Routine Electronic Heart Tones Internal [WOMSER] Per Unit Routine Peripheral IV Insertion Adult [OM.PC] Routine Resuscitation Status Routine 09/24/20 21:57 Heart Tones [RC] ASDIRECTED Peripheral IV Care [RC] . DIRECTED Pump Management, Intrathecal [RC] ASDIRECTED 09/24/20 21:58 Notify Provider Vital Signs [RC] PRN 09/24/20 22:00 Lactated Ringers [Ringers, Lactated] 1,000 ml IV ASDIRECTED Oxytocin/Lactated Ringers [Pitocin in LR 10 Units/1,000 ML] 10 unit in 1,000 ml IV .CONTINUOUS 09/24/20 22:10 RAPID PLASMA REAGIN,RPR [CHEM] Routine 09/24/20 23:45 Oxytocin/Lactated Ringers [Pitocin in LR 10 Units/1,000 ML] 10 unit in 1,000 ml IV TITRATE 09/25/20 04:45 Patient Status Manage Transfer [TRANSFER] Routine - Plan Plan:: Chani Burks is a 35-year-old now -0-0-3 status post , PPD #0 complicated by nuchal cord x2 with true knot in the cord and anxiety with depression Admit to inpatient following normal spontaneous vaginal delivery Continue Pitocin per unit protocol following delivery of placenta and lactated Ringer's until tolerating regular diet Regular diet Vitals per unit routine Ibuprofen and Tylenol for pain control Assist with breast-feeding as needed Continue to monitor lochia Continue Zoloft 100 mg daily for her anxiety and depression Anticipate discharge home on day #1 or #2 depending on status Darren Del Valle MD 5:01 AM 09/25/2020
[2020-09-25] MEDS ORDERED: Hydrocortisone Acetate 25 MG Supp RECTAL PRN (06:14)
[2020-09-25] MEDS ORDERED: Witch Hazel Medicated Pads 40/Jar TOP PRN (06:14)
[2020-09-25] MEDS ORDERED: Acetaminophen 325 MG Tab PO PRN (06:14)
[2020-09-25] MEDS ORDERED: Magnesium Hydroxide 400 MG/5 ML Susp 30 ML Cup PO PRN (06:14)
[2020-09-25] MEDS ORDERED: Docusate Sodium 100 MG Cap PO PRN (06:14)
[2020-09-25] MEDS ORDERED: Ibuprofen 600 MG Tab PO PRN (06:14)
[2020-09-25] MEDS ORDERED: Benzocaine/Menthol 20%-0.5% Spray 56 GM Canister TOP PRN (06:14)
[2020-09-25] MEDS ORDERED: Oxytocin/Lactated Ringers 10 UNIT/1,000 ML BAG IV SCH (06:14)
[2020-09-25] MEDS ORDERED: Prenatal Multivitamin with Calcium/Folic Acid/Iron Tab PO SCH (09:00)
[2020-09-25] MEDS ORDERED: Sertraline 50 MG Tab PO SCH (09:00)
--- NOTE | 2020-09-25 10:16 | PCM.SN.2 ---
- Free Text/Narrative Note: Post Progress Note PPD #0 Subjective: Doing well overall. Ambulating without difficulty. Lochia minimal per patient report and she states that it is slightly heavier than a normal menstrual cycle. Voiding without difficulty. Tolerating regular diet without nausea or vomiting. Pain controlled with oral medications. Planning to pump breastmilk. Objective: Vitals: Vital Signs - 8 hr 09/25/20 09/25/20 09/25/20 02:31 03:01 03:30 Pulse, 90 76 72 Peripheral Blood Pressure 126/72 110/57 L 116/77 09/25/20 09/25/20 09/25/20 04:05 04:31 05:00 Pulse, 146 H 73 77 Peripheral Blood Pressure 128/64 117/63 09/25/20 05:30 Pulse, 78 Peripheral Blood Pressure 107/64 Physical Exam General: Alert and oriented, no acute distress Lungs: Clear to auscultation bilaterally Heart: Regular rate and rhythm Abdomen: Soft, minimal appropriate tenderness, non-distended, fundus midline, nontender, and at the umbilicus Extremities: Trace edema in bilateral lower extremities to mid shins, no calf tenderness bilaterally ASSESSMENT: 35-year-old female -0-0-3 s/p normal vaginal delivery PPD #0, complicated by hypoxia at time of delivery requiring additional NICU care, infant was transferred to [place] for NICU care. Patient has anxiety and depression PLAN: Doing well Planning to pump breastmilk for feeding infant. Assist as needed Lochia minimal. Continue to monitor for appropriate lochia. Continue routine care Discharge home today due to infant being transferred to [place] for additional NICU care Darren Del Valle MD 10:15 AM 09/25/2020
--- NOTE | 2020-09-25 10:23 | PCM.DCSUM1 ---
Discharge Summary - Hospital Course Free Text/Narrative:: - General Info Date of Service: 09/25/20 Mother's Due Date: 10/04/20 - Delivery Note Labor: Spontaneous, Augmented by Oxytocin Delivery Outcome: Livebirth Infant Delivery Method: Spontaneous Vaginal Delivery-Single Presentation: Right Occiput Posterior (ROP) Nuchal Cord: Present (x2, reduced after delivery of ) Anesthesia Type: Epidural Episiotomy Type: None Laceration: 2nd Degree (midline perineal, repaired with 3-0 Vicryl) Suture type: Vicryl Suture size: 3-0 Placenta: Intact, Spontaneous Cord: 3 Vessels, True Knot Estimated Blood Loss: 200 Resuscitation Needed: Yes : Bulb Syringe, Stimulated, Warmed, [place] Used, Warmer Used Provider: Darren Del Valle Score 1 min: 3 Score 5 min: 6 Second Stage Interventions: Reports: Pushing, Stirrups/Leg Supports Delivery Comments (Free Text/Narrative):: Stage I: Chani Burks was admitted for spontaneous rupture of membranes. On admission her cervix was dilated to 3.5 cm. She was GBS negative. She was making slow progress after rupture membranes and was started on Pitocin for augmentation of labor. She was given an epidural for anesthesia. She progressed to complete and pushing. Stage II: On 09/25/2020 she had a normal vaginal delivery of a live female at 04:17. Apgars of 3 & 6. Weight unavailable at time of note. There was a nuchal cord x2 that was unable to be reduced prior to delivery due to fast expulsion of the . was delivered in ROP position. The cord was doubly clamped and cut by father of the . Infant was placed on mother's abdomen initially and then taken to the warmer for further resuscitation. Stage III: She had a spontaneous delivery of an intact placenta in Teresa presentation. Three vessel cord. There was a true knot in the cord. She was given pitocin and fundal massage. She had a second-degree midline perineal laceration that was repaired with 3-0 Vicryl. Mom and baby were stable to recovery. EBL of 200 mL. Diagnosis: Stroke: No - Discharge Data Discharge Date: 09/25/20 Discharge Disposition: Home, Self-Care 01 Condition: Good - Referral to Home Health Primary Care Physician: Angela Chino MD - Discharge Diagnosis/Problem(s) (1) 38 weeks gestation of SNOMED Code(s): 51257663 ICD Code: Z3A.38 - 38 WEEKS GESTATION OF Status: Acute Current Visit: Yes (2) Anxiety SNOMED Code(s): 24079163 ICD Code: F41.9 - ANXIETY DISORDER, UNSPECIFIED Status: Acute Current Visit: Yes (3) Depression SNOMED Code(s): 10172075 ICD Code: F32.9 - MAJOR DEPRESSIVE DISORDER, SINGLE EPISODE, UNSPECIFIED Status: Acute Current Visit: Yes (4) Vaginal delivery SNOMED Code(s): 431371937 ICD Code: O80 - ENCOUNTER FOR FULL-TERM UNCOMPLICATED DELIVERY Status: Acute Current Visit: Yes (5) Second degree perineal laceration during delivery SNOMED Code(s): 9357807 ICD Code: O70.1 - SECOND DEGREE PERINEAL LACERATION DURING DELIVERY Status: Acute Current Visit: Yes (6) True knot of umbilical cord, delivered SNOMED Code(s): 18005541, 771224649 ICD Code: O69.2XX0 - LABOR AND DEL COMP BY OTH CORD ENTANGLE, W COMPRSN, UNSP Status: Acute Current Visit: Yes (7) Nuchal cord without compression, delivered, current hospitalization SNOMED Code(s): 34348414, 632393144 ICD Code: O69.81X0 - LABOR AND DEL COMP BY CORD AROUND NECK, W/O COMPRSN, UNSP Status: Acute Current Visit: Yes - Patient Summary/Data Complications: None Consults: None Hospital Course: Chani Burks was admitted for spontaneous rupture membranes. She had spontaneous rupture of membranes with clear fluid at home. On admission her cervix was dilated to 3.5 cm. She was GBS negative. She was given pitocin for augmentation. She was given an epidural for anesthesia. She progressed to complete and began pushing. On 09/25/2020 she had a normal vaginal delivery of a live female infant at 04:17. Apgars of 8 and 6. Weight of 3280 g (7 pounds 3.7 ounces). The delivery was complicated by hypoxic episode at time of delivery. The was transferred to [facility] for additional NICU care approximately 4 hours after delivery. Her course was uneventful. Her pain was well controlled and she had minimal lochia. She was ambulating, tolerating a regular diet and voiding normally. She was planning to pump breastmilk for feeding infant. She was afebrile and her hematocrit was 38.0 on admission. She desired to be discharged home on the morning of PPD #0 due to being transferred to [facility] for additional NICU care. Her blood type is AB+. - Patient Instructions Diet: Regular Diet as Tolerated Activity: Apply Ice, As Tolerated Activity, Other: Nothing in the vagina for 6 weeks Driving: May Drive Today Showering/Bathing: May Shower Notify Provider of: Fever, Increased Pain, Swelling and Redness, Drainage, Nausea and/or Vomiting Other/Special Instructions: Please contact your physician's office if you have heavy vaginal bleeding enough to soak a pad in less than an hour for several hours. Monitor for any signs of an infection in the breasts with severe pain or redness of the breast. - Discharge Plan *PRESCRIPTION DRUG MONITORING PROGRAM REVIEWED*: Not Applicable *COPY OF PRESCRIPTION DRUG MONITORING REPORT IN PATIENT LAY: Not Applicable Home Medications: Home Meds Pnv No.95/Ferrous Fum/Folic AC [ Vitamins Tablet] 1 tab PO DAILY 09/24/20 [History] Sertraline [Zoloft] 100 mg PO DAILY 09/24/20 [History] Acetaminophen [Tylenol] 650 mg PO Q6H PRN tablet 09/25/20 [Rx] Benzocaine/Menthol [Dermoplast Pain Relief [place]] 1 spray TOP ASDIRECTED PRN canister 09/25/20 [Rx] Docusate Sodium [Colace] 100 mg PO BID PRN cap 09/25/20 [Rx] Hydrocortisone Acetate [Anucort-HC] 25 mg RECTAL BID PRN supp 09/25/20 [Rx] Ibuprofen [Motrin] 600 mg PO Q6H PRN tablet 09/25/20 [Rx] witch Araceli [Tucks] 1 pad TOP ASDIRECTED PRN pad 09/25/20 [Rx] Patient Handouts: Care of a Perineal Tear, Care After Vaginal Delivery Referrals: Angela Chino MD [Primary Care Provider] - (Follow-up in 3 to 6 weeks for routine visit or earlier as needed.) - Discharge Summary/Plan Comment DC Time >30 min.: No - Patient Data Vitals - Most Recent: Last Vital Signs Temp 37.1 C 09/24/20 21:40 Pulse 78 09/25/20 05:30 Resp 16 09/24/20 21:40 BP 107/64 09/25/20 05:30 Pulse Ox 97 09/24/20 21:40 Weight - Most Recent: 92.941 kg Lab Results - Last 24 hrs: Laboratory Results - last 24 hr 09/24/20 09/24/20 Range/Units 22:10 22:45 WBC 7.54 (3.98-10.04) K/mm3 RBC 4.34 (3.98-5.22) M/mm3 Hgb 12.5 (11.2-15.7) gm/dl Hct 38.0 (34.1-44.9) % MCV 87.6 (79.4-94.8) fl MCH 28.8 (25.6-32.2) pg MCHC 32.9 (32.2-35.5) g/dl RDW Std Deviation 42.4 (36.4-46.3) fL Plt Count 235 (182-369) K/mm3 MPV 10.4 (9.4-12.3) fl Neut % (Auto) 55.2 (34.0-71.1) % Lymph % (Auto) 34.2 (19.3-51.7) % [place] % (Auto) 9.8 (4.7-12.5) % Eos % (Auto) 0.4 L (0.7-5.8) Baso % (Auto) 0.1 (0.1-1.2) % Neut # (Auto) 4.16 (1.56-6.13) K/mm3 Lymph # (Auto) 2.58 (1.18-3.74) K/mm3 [place] # (Auto) 0.74 H (0.24-0.36) K/mm3 Eos # (Auto) 0.03 L (0.04-0.36) K/mm3 Baso # (Auto) 0.01 (0.01-0.08) K/mm3 SARS-CoV-2 RNA (SHEBA) Negative (NEGATIVE) Med Orders - Current: Current Medications Acetaminophen (Tylenol) 650 mg PO Q6H PRN PRN Reason: mild pain or fever Last Admin: 09/25/20 09:23 Dose: 650 mg Documented by: Benzocaine/Menthol (Dermoplast Pain Relief [place]) 0 gm TOP ASDIRECTED PRN PRN Reason: Perineal Comfort Measure Last Admin: 09/25/20 08:45 Dose: 1 container Documented by: Docusate Sodium (Colace) 100 mg PO BID PRN PRN Reason: Constipation Hydrocortisone Acetate (Anucort-Hc) 25 mg RECTAL BID PRN PRN Reason: Hemorrhoid pain Oxytocin/Lactated Ringer's (Pitocin In Lr 10 Units/1,000 Ml) 10 unit in 1,000 mls @ 100 mls/hr IV TITRATE KAREN; Protocol Ibuprofen (Motrin) 600 mg PO Q6H PRN PRN Reason: Mild pain or fever Last Admin: 09/25/20 06:30 Dose: 600 mg Documented by: Magnesium Hydroxide (Milk Of Magnesia) 30 ml PO BEDTIME PRN PRN Reason: Constipation Prenat Multivit/[place]/Iron/Folic Ac ( Plus Iron) 1 each PO DAILY [facility] Last Admin: 09/25/20 09:23 Dose: 1 each Documented by: Sertraline HCl (Zoloft) 100 mg PO DAILY [facility] Last Admin: 09/25/20 09:30 Dose: Not Given Documented by: Vivien Vera ([facility]) 1 pad TOP ASDIRECTED PRN PRN Reason: Perineal Comfort Measure Last Admin: 09/25/20 08:46 Dose: 1 canister Documented by: Discontinued Medications Acetaminophen (Tylenol) 650 mg PO Q6H PRN PRN Reason: Pain (Mild 1-3) and fever Diphenhydramine HCl (Benadryl) 25 mg IVPUSH Q6H PRN PRN Reason: pruritis Ephedrine Sulfate (Ephedrine Sulfate) 5 mg IVPUSH ASDIRECTED PRN PRN Reason: Hypotension Last Admin: 09/25/20 02:28 Dose: 5 mg Documented by: Fentanyl (Sublimaze) 100 mcg EPIDUR Q3H PRN PRN Reason: Pain Last Admin: 09/25/20 01:10 Dose: 100 mcg Documented by: Fentanyl (Sublimaze) Confirm Administered Dose 100 mcg .ROUTE .STK-MED ONE Stop: 09/25/20 01:03 Last Admin: 09/25/20 02:59 Dose: Not Given Documented by: Fentanyl/Bupivacaine HCl (Fentanyl/Bupivacaine/Ns 2 Mcg-0.125% 100 Ml) 100 ml EPIDUR ASDIRECTED PRN PRN Reason: Pain Last Admin: 09/25/20 01:16 Dose: 100 ml Documented by: Oxytocin/Lactated Ringer's (Pitocin In Lr 10 Units/1,000 Ml) 10 unit in 1,000 mls @ 100 mls/hr IV .CONTINUOUS KAREN Lactated Ringer's (Ringers, Lactated) 1,000 mls @ 100 mls/hr IV ASDIRECTED KAREN Last Admin: 09/25/20 01:16 Dose: 999 mls/hr Documented by: Oxytocin/Lactated Ringer's (Pitocin In Lr 10 Units/1,000 Ml) 10 unit in 1,000 mls @ 12 mls/hr IV TITRATE KAREN; Protocol Last Admin: 09/25/20 00:07 Dose: 2 munits/min, 12 mls/hr Documented by: Nalbuphine HCl (Nubain) 10 mg IVPUSH Q2H PRN PRN Reason: Pain Sodium Chloride (Saline Flush) 10 ml FLUSH ASDIRECTED PRN PRN Reason: Keep Vein Open
--- NOTE | 2020-09-25 14:30 | PCM48HPAN ---
Post Anesthesia Note - EVALUATION WITHIN 48HRS OF ANESTHETIC Vital Signs in Normal Range: Yes Patient Participated in Evaluation: Yes Respiratory Function Stable: Yes Airway Patent: Yes Cardiovascular Function Stable: Yes Hydration Status Stable: Yes Pain Control Satisfactory: Yes Nausea and Vomiting Control Satisfactory: Yes Mental Status Recovered: Yes Vital Signs: Last Vital Signs Temp 98.7 F 09/24/20 21:40 Pulse 78 09/25/20 05:30 Resp 16 09/24/20 21:40 BP 107/64 09/25/20 05:30 Pulse Ox 97 09/24/20 21:40 - COMMENTS/OBSERVATIONS Free Text/Narrative:: Patient is on her day 1. Denied having some any back pain, headache or lightheadedness at this time. No apparent anesthesia complications noted. Comfortable now. Ambulating, no difficulty urinating.
[2020-09-25 15:49] VITALS: BP 126/73; PULSE 64
== END 2020-09-25 12:30 | disposition home or self-care (01) | DRG 807 ==
LOC: JD.OB 21:15 → JD.OBCHECK 21:15 → JD.OB 21:56 → OBSVTOIN 09-25 04:17 → JD.OB 09-25 04:18
PROVIDERS: ADMIT Obstetrics & Gynecology; ATTEND Obstetrics & Gynecology
PROC: 10E0XZZ Delivery of Products of Conception, External Approach (ICD-10-PCS; principal; 2020-09-25)
PROC: 0KQM0ZZ Repair Perineum Muscle, Open Approach (ICD-10-PCS; 2020-09-25)
PROC: 3E0R3BZ Introduction of Anesthetic Agent into Spinal Canal, Percutaneous Approach (ICD-10-PCS; 2020-09-25)
PROC: 00HU33Z Insertion of Infusion Device into Spinal Canal, Percutaneous Approach (ICD-10-PCS; 2020-09-25)
DX: O99.344 Other mental disorders complicating childbirth (principal); Z37.0 Single live birth; O70.1 Second degree perineal laceration during delivery; F41.9 Anxiety disorder, unspecified; F32.9 Major depressive disorder, single episode, unspecified; Z86.16 Personal history of COVID-19; O99.214 Obesity complicating childbirth; E66.9 Obesity, unspecified; O77.8 Labor and delivery complicated by other evidence of fetal stress; Z20.822 Contact with and (suspected) exposure to COVID-19; Z3A.38 38 weeks gestation of pregnancy; O69.1XX0 Labor and delivery complicated by cord around neck, with compression, not applicable or unspecified
CPT/HCPCS: 01967; 36415; 51701; 59025; 59409; 85025; 86592; A9270-GY; J2590; J3010; J7120; U0002

== ENCOUNTER → 2021-05-28 | Day surgery (SDC) | payer OTHER ==
[~2021-05-28] MED LIST: Bupivacaine 0.5% 30 ML SDV ONE; Diatrizoate Meglumine/Diatrizoate Sodium 37% 120 ML Bottle PO ONE; HYDROmorphone 0.5 MG/0.5 ML Syringe IVPUSH PRN; Iopamidol 612 MG/ML 100 ML Bottle IVPUSH ONE; Iopamidol 612 MG/ML 50 ML SDV IVPUSH ONE; Ketorolac 30 MG/ML SDV ONE; Lactated Ringers 1,000 ML ONE; Lidocaine 1% 4 ML ONE; Midazolam 1 MG/ML 2 ML SDV ONE; Ondansetron 4 MG/2 ML SDV IVPUSH ONE; Ondansetron 4 MG/2 ML SDV ONE; Propofol 200 MG/20 ML SDV ONE; Rocuronium 50 MG/5 ML Vial ONE; Sodium Chloride 0.9% 10 ML Syringe FLUSH PRN; cefOXitin 2 GM in Premix Bag 1 BAG IV ONE; fentaNYL 100 MCG/2 ML SDV IVPUSH PRN; fentaNYL 250 MCG/5 ML SDV ONE; oxyCODONE 5 MG Tab PO STA
--- NOTE | 2021-05-28 04:23 | EDM.PDOC ---
ED HPI GENERAL MEDICAL PROBLEM - General Chief Complaint: Abdominal Pain Stated Complaint: ABD PAIN Time Seen by Provider: 05/28/21 04:14 - History of Present Illness INITIAL COMMENTS - FREE TEXT/NARRATIVE: 35-year-old female presents the emergency room with abdominal pain. Patient is concerned that spaghetti she had for supper is causing her some abdominal pain. She describes right upper quadrant pain that extends to the mi ddle of her upper abdomen and the right side of her lower abdomen. She has not had any significant nausea with this and no diarrhea but she is developing pain she is not aware of any fevers or chills. Other than a few hernias when she was a child she denies any abdominal surgery. She is roughly 1 year . right abdomen Pain Score (Numeric/FACES): 6 - Related Data Allergies Allergy/AdvReac Type Severity Reaction Status Date / Time bacitracin Allergy Itching Verified 05/29/14 21:21 sulfamethoxazole Allergy Rash Verified 02/06/15 18:17 [From Bactrim] trimethoprim [From Bactrim] Allergy Rash Verified 02/06/15 18:17 Home Meds: Home Meds Pnv No.95/Ferrous Fum/Folic AC [ Vitamins Tablet] 1 tab PO DAILY 09/24/20 [History] Sertraline [Zoloft] 100 mg PO DAILY 09/24/20 [History] Acetaminophen [Tylenol] 650 mg PO Q6H PRN tablet 09/25/20 [Rx] Benzocaine/Menthol [Dermoplast Pain Relief [place]] 1 spray TOP ASDIRECTED PRN canister 09/25/20 [Rx] Docusate Sodium [Colace] 100 mg PO BID PRN cap 09/25/20 [Rx] Hydrocortisone Acetate [Anucort-HC] 25 mg RECTAL BID PRN supp 09/25/20 [Rx] Ibuprofen [Motrin] 600 mg PO Q6H PRN tablet 09/25/20 [Rx] witch Araceli [Tucks] 1 pad TOP ASDIRECTED PRN pad 09/25/20 [Rx] Past Medical History HEENT History: Reports: Other (See Below) Other HEENT History: Pt wears glasses Cardiovascular History: Reports: None Respiratory History: Reports: None Genitourinary History: Reports: None [employer] History: Reports: Neurological History: Reports: None Psychiatric History: Reports: Anxiety, Depression Endocrine/Metabolic History: Reports: None, Obesity/BMI 30+ Hematologic History: Reports: None Immunologic History: Reports: None Oncologic (Cancer) History: Reports: None - Past Surgical History Head Surgeries/Procedures: Reports: None HEENT Surgical History: Reports: Adenoidectomy, Tonsillectomy, Other (See Below) Other HEENT Surgeries/Procedures: [place] teeth extraction GI Surgical History: Reports: Hernia, Inguinal Female Surgical History: Reports: Breast Biopsy, LEEP, Other (See Below) Dermatological Surgical History: Reports: Other (See Below) Social & Family History - Family History Family Medical History: No Pertinent Family History - Tobacco Use Tobacco Use Status *Q: Never Tobacco User - Caffeine Use Caffeine Use: Reports: Soda Other Caffeine Use: occasional - Recreational Drug Use Recreational Drug Use: No - Living Situation & Occupation Living situation: Reports: , with Spouse, with Family Occupation: Employed ED ROS GENERAL - Review of Systems Review Of Systems: See Below Constitutional: Reports: No Symptoms HEENT: Reports: No Symptoms Respiratory: Reports: No Symptoms Cardiovascular: Reports: No Symptoms Endocrine: Reports: No Symptoms GI/Abdominal: Reports: Abdominal Pain. Denies: Constipation, Diarrhea, Nausea, Vomiting : Reports: No Symptoms Musculoskeletal: Reports: No Symptoms Skin: Reports: No Symptoms Neurological: Reports: No Symptoms ED EXAM, GENERAL - Physical Exam Exam: See Below Exam Limited By: No Limitations General Appearance: Alert, No Apparent Distress Head: Atraumatic, Normocephalic Neck: Normal Inspection, Supple, Non-Tender, Full Range of Motion. No: Lymphadenopathy (L), Lymphadenopathy (R) Respiratory/Chest: No Respiratory Distress, Lungs Clear, Normal Breath Sounds Cardiovascular: Regular Rate, Rhythm, No Edema, No Murmur GI/Abdominal: Normal Bowel Sounds, Rebound, Tender (Palpation the patient has no epigastric or right upper quadrant tenderness but she has significant right lower quadrant tenderness with rebound tenderness.) Back Exam: Normal Inspection, Full Range of Motion. No: CVA Tenderness (L), CVA Tenderness (R) Neurological: Alert, Oriented, Normal Cognition Course - Vital Signs Last Recorded V/S: Last Vital Signs Temp Pulse 76 05/28/21 03:49 Resp 20 05/28/21 03:49 BP 125/72 05/28/21 03:49 Pulse Ox 98 05/28/21 03:49 - Orders/Labs/Meds Orders: Active Orders 24 hr Category Date Time Status CORONAVIRUS COVID-19 SHEBA [MOLEC] Stat Lab 05/28/21 06:52 Ordered Sodium Chloride 0.9% [Saline Flush] Med 05/28/21 05:40 Active 10 ml FLUSH ONETIME PRN Medication Orders Sodium Chloride (Sodium Chloride 0.9% 10 Ml Syringe) 10 ml FLUSH ONETIME PRN PRN Reason: Keep Vein Open Last Admin: 05/28/21 06:19 Dose: 10 ml Documented by: [id number] Labs: Laboratory Tests 05/28/21 05/28/21 05/28/21 Range/Units 04:37 04:37 04:47 WBC 14.86 H (3.98-10.04) K/mm3 RBC 4.71 (3.98-5.22) M/mm3 Hgb 13.5 (11.2-15.7) gm/dl Hct 41.6 (34.1-44.9) % MCV 88.3 (79.4-94.8) fl MCH 28.7 (25.6-32.2) pg MCHC 32.5 (32.2-35.5) g/dl RDW Std Deviation 42.4 (36.4-46.3) fL Plt Count 299 (182-369) K/mm3 MPV 10.0 (9.4-12.3) fl Neut % (Auto) 88.4 H (34.0-71.1) % Lymph % (Auto) 7.1 L (19.3-51.7) % [place] % (Auto) 4.2 L (4.7-12.5) % Eos % (Auto) 0 L (0.7-5.8) Baso % (Auto) 0.1 (0.1-1.2) % Neut # (Auto) 13.14 H (1.56-6.13) K/mm3 Lymph # (Auto) 1.05 L (1.18-3.74) K/mm3 [place] # (Auto) 0.63 H (0.24-0.36) K/mm3 Eos # (Auto) 0.00 L (0.04-0.36) K/mm3 Baso # (Auto) 0.01 (0.01-0.08) K/mm3 Sodium 139 (136-145) mEq/L Potassium 3.6 (3.5-5.1) mEq/L Chloride 103 (98-107) mEq/L Carbon Dioxide 25 (21-32) mEq/L Anion Gap 14.6 (5-15) BUN 11 (7-18) mg/dL Creatinine 0.7 (0.55-1.02) mg/dL Est Cr Clr Drug Dosing 86.26 mL/min Estimated GFR (MDRD) > 60 (>60) mL/min BUN/Creatinine Ratio 15.7 (14-18) Glucose 128 H (70-99) mg/dL Calcium 8.6 (8.5-10.1) mg/dL Total Bilirubin 0.4 (0.2-1.0) mg/dL AST 13 L (15-37) U/L ALT 20 (14-59) U/L Alkaline Phosphatase 62 (46-116) U/L C-Reactive Protein 0.7 (<1.0) mg/dL Total Protein 7.4 (6.4-8.2) g/dl Albumin 3.9 (3.4-5.0) g/dl Globulin 3.5 gm/dL Albumin/Globulin Ratio 1.1 (1-2) Lipase 106 (73-393) U/L Urine Color Yellow (Yellow) Urine Appearance Slt cloudy H (Clear) Urine pH >=9.0 H (5.0-8.0) Ur Specific [place] 1.020 (1.005-1.030) Urine Protein Negative (Negative) Urine Glucose (UA) Negative (Negative) Urine Ketones Negative (Negative) Urine Occult Blood Negative (Negative) Urine Nitrite Negative (Negative) Urine Bilirubin Negative (Negative) Urine Urobilinogen 0.2 (0.2-1.0) Ur Leukocyte Esterase Negative (Negative) Urine HCG, Qual (NEGATIVE) 05/28/21 Range/Units 04:47 WBC (3.98-10.04) K/mm3 RBC (3.98-5.22) M/mm3 Hgb (11.2-15.7) gm/dl Hct (34.1-44.9) % MCV (79.4-94.8) fl MCH (25.6-32.2) pg MCHC (32.2-35.5) g/dl RDW Std Deviation (36.4-46.3) fL Plt Count (182-369) K/mm3 MPV (9.4-12.3) fl Neut % (Auto) (34.0-71.1) % Lymph % (Auto) (19.3-51.7) % [place] % (Auto) (4.7-12.5) % Eos % (Auto) (0.7-5.8) Baso % (Auto) (0.1-1.2) % Neut # (Auto) (1.56-6.13) K/mm3 Lymph # (Auto) (1.18-3.74) K/mm3 [place] # (Auto) (0.24-0.36) K/mm3 Eos # (Auto) (0.04-0.36) K/mm3 Baso # (Auto) (0.01-0.08) K/mm3 Sodium (136-145) mEq/L Potassium (3.5-5.1) mEq/L Chloride (98-107) mEq/L Carbon Dioxide (21-32) mEq/L Anion Gap (5-15) BUN (7-18) mg/dL Creatinine (0.55-1.02) mg/dL Est Cr Clr Drug Dosing mL/min Estimated GFR (MDRD) (>60) mL/min BUN/Creatinine Ratio (14-18) Glucose (70-99) mg/dL Calcium (8.5-10.1) mg/dL Total Bilirubin (0.2-1.0) mg/dL AST (15-37) U/L ALT (14-59) U/L Alkaline Phosphatase (46-116) U/L C-Reactive Protein (<1.0) mg/dL Total Protein (6.4-8.2) g/dl Albumin (3.4-5.0) g/dl Globulin gm/dL Albumin/Globulin Ratio (1-2) Lipase (73-393) U/L Urine Color (Yellow) Urine Appearance (Clear) Urine pH (5.0-8.0) Ur Specific [place] (1.005-1.030) Urine Protein (Negative) Urine Glucose (UA) (Negative) Urine Ketones (Negative) Urine Occult Blood (Negative) Urine Nitrite (Negative) Urine Bilirubin (Negative) Urine Urobilinogen (0.2-1.0) Ur Leukocyte Esterase (Negative) Urine HCG, Qual Negative (NEGATIVE) Meds: Medications Generic Name Dose Route Start Last Admin Trade Name Freq PRN Reason Stop Dose Admin Sodium Chloride 10 ml 05/28/21 05:40 05/28/21 06:19 Sodium Chloride 0.9% 10 Ml Syringe FLUSH 10 ml ONETIME PRN Administration Keep Vein Open Discontinued Medications Generic Name Dose Route Start Last Admin Trade Name Freq PRN Reason Stop Dose Admin Diatrizoate Meglum/Diatrizoate Sod 30 ml 05/28/21 05:35 05/28/21 06:17 Diatrizoate Meglumine/Diatrizoate Sodium 37% 120 Ml Bottle PO 05/28/21 05:36 60 ml ONETIME ONE Administration Iopamidol 100 ml 05/28/21 04:47 05/28/21 06:17 Iopamidol 612 Mg/Ml 100 Ml Bottle IVPUSH 05/28/21 04:48 100 ml ONETIME ONE Administration Iopamidol 50 ml 05/28/21 04:47 05/28/21 06:17 Iopamidol 612 Mg/Ml 50 Ml Sdv IVPUSH 05/28/21 04:48 25 ml ONETIME ONE Administration Ondansetron HCl 4 mg 05/28/21 05:31 05/28/21 05:41 Ondansetron 4 Mg/2 Ml Sdv IVPUSH 05/28/21 05:32 4 mg ONETIME ONE Administration - Re-Assessments/Exams Free Text/Narrative Re-Assessment/Exam: 05/28/21 07:29 based on her physical exam ordered abdominal pelvic CT with oral contrast we please get the contrast going awaited labs she is got a mildly elevated white count. Patient tolerated the oral contrast with the assistance of Zofran she did go to CT which did show a developing acute appendicitis. Case was discussed with Dr. Ramirez we will check a Covid. Departure - Departure Time of Disposition: 06:40 Disposition: DC/Tfer to [facility] Clinical Impression: Acute appendicitis - Discharge Information Referrals: Marilee Goss MD [Primary Care Provider] - Forms: ED Department Discharge Sepsis Event Note (ED) - Focused Exam Vital Signs: Vital Signs Pulse Resp BP Pulse Ox 05/28/21 03:49 76 20 125/72 98 - My Orders Last 24 Hours: My Active Orders 05/28/21 05:40 Sodium Chloride 0.9% [Saline Flush] 10 ml FLUSH ONETIME PRN 05/28/21 06:52 CORONAVIRUS COVID-19 SHEBA [MOLEC] Stat - Assessment/Plan Last 24 Hours: My Active Orders 05/28/21 05:40 Sodium Chloride 0.9% [Saline Flush] 10 ml FLUSH ONETIME PRN 05/28/21 06:52 CORONAVIRUS COVID-19 SHEBA [MOLEC] Stat
--- NOTE | 2021-05-28 06:44 | CT ---
CT abdomen and pelvis Technique: Multiple axial sections were obtained from slightly below the top of the liver inferiorly through the pubic symphysis. Intravenous and oral contrast were utilized. Reconstructed coronal and sagittal images were obtained. Delayed images were also obtained through the bladder. Comparison: No prior study is available. Findings: Appendix is seen and appears to be dilated. Mild inflammatory change is noted around the appendix. Findings are compatible with mild appendicitis. Visualized lung bases show nothing acute. Liver contains no focal parenchymal abnormality. Spleen size is normal. Adrenal glands show no nodule. Pancreas shows no discrete abnormality. Gallbladder contains no calcified gallstones. Kidneys show symmetric contrast enhancement without hydronephrosis or mass. Abdominal aorta shows no aneurysm. Scattered retroperitoneal lymph nodes are seen and believed to be within normal limits. No mesenteric abnormalities are seen. No pelvic mass or adenopathy is noted. Delayed images show contrast within the distal ureters. Bone window settings were reviewed which appear within normal limits for the patient's age. Impression: 1. Findings compatible with mild appendicitis. 2. Other normal findings as noted above. Diagnostic code #5
--- NOTE | 2021-05-28 08:19 | PCM.HP.2 ---
H&P History of Present Illness - General Date of Service: 05/28/21 Admit Problem/Dx: Admission Diagnosis/Problem Admission Diagnosis/Problem Appendicitis Source of Information: Patient History Limitations: Reports: No Limitations - History of Present Illness Initial Comments - Free Text/Narative: Ms. Burks is a 35 yo woman who developed abdominal pain last night after dinner. The pain is in the right lower quadrant. She reports associated malaise and chills. In the ER, she is found to have a leukocytosis and CT shows evidence of acute appendicitis. She is healthy, takes only zoloft, and only abdominal operation in the past was primary inguinal hernia repair as a child. right abdomen Pain Score (Numeric/FACES): 6 - Related Data Allergies/Adverse Reactions: Allergies Allergy/AdvReac Type Severity Reaction Status Date / Time bacitracin Allergy Itching Verified 05/28/21 07:11 sulfamethoxazole Allergy Rash Verified 05/28/21 07:11 [From Bactrim] trimethoprim [From Bactrim] Allergy Rash Verified 05/28/21 07:11 Home Medications: Home Meds Sertraline [Zoloft] 100 mg PO DAILY 09/24/20 [History] LORazepam [Ativan] 0.5 mg PO Q6HR PRN 05/28/21 [History] Past Medical History HEENT History: Reports: Other (See Below) Other HEENT History: Pt wears glasses Cardiovascular History: Reports: None Respiratory History: Reports: None Genitourinary History: Reports: None PBX MANAGER History: Reports: Neurological History: Reports: None Psychiatric History: Reports: Anxiety, Depression Endocrine/Metabolic History: Reports: None, Obesity/BMI 30+ Hematologic History: Reports: None Immunologic History: Reports: None Oncologic (Cancer) History: Reports: None - Past Surgical History Head Surgeries/Procedures: Reports: None HEENT Surgical History: Reports: Adenoidectomy, Tonsillectomy, Other (See Below) Other HEENT Surgeries/Procedures: [place] teeth extraction GI Surgical History: Reports: Hernia, Inguinal Female Surgical History: Reports: Breast Biopsy, LEEP, Other (See Below) Dermatological Surgical History: Reports: Other (See Below) Social & Family History - Family History Family Medical History: No Pertinent Family History - Tobacco Use Tobacco Use Status *Q: Never Tobacco User - Caffeine Use Caffeine Use: Reports: Soda Other Caffeine Use: occasional - Recreational Drug Use Recreational Drug Use: No - Living Situation & Occupation Living situation: Reports: , with Spouse, with Family Occupation: Employed H&P Review of Systems - Review of Systems: Review Of Systems: See Below General: Reports: Chills, Malaise HEENT: Reports: No Symptoms Pulmonary: Reports: No Symptoms Cardiovascular: Reports: No Symptoms Gastrointestinal: Reports: Abdominal Pain, Anorexia Genitourinary: Reports: No Symptoms Musculoskeletal: Reports: No Symptoms Skin: Reports: No Symptoms Psychiatric: Reports: No Symptoms Neurological: Reports: No Symptoms Hematologic/Lymphatic: Reports: No Symptoms Immunologic: Reports: No Symptoms Exam - Exam Exam: See Below - Vital Signs Vital Signs: Last Vital Signs Temp 36.3 C 05/28/21 07:56 Pulse 84 05/28/21 07:56 Resp 16 05/28/21 07:56 BP 120/73 05/28/21 07:56 Pulse Ox 94 L 05/28/21 07:56 Weight: 90.718 kg - Exam General: Alert, Oriented, Cooperative HEENT: Conjunctiva Clear Neck: Trachea Midline Lungs: Normal Respiratory Effort Cardiovascular: Regular Rate GI/Abdominal Exam: Soft, No Mass, Tender Extremities: Normal Inspection Skin: Warm, Dry Neuro Extensive - Mental Status: Alert, Oriented x3 Psychiatric: Normal Mood - Patient Data Lab Results Last 24 hrs: Laboratory Results - last 24 hr 05/28/21 05/28/21 05/28/21 Range/Units 04:37 04:37 04:47 WBC 14.86 H (3.98-10.04) K/mm3 RBC 4.71 (3.98-5.22) M/mm3 Hgb 13.5 (11.2-15.7) gm/dl Hct 41.6 (34.1-44.9) % MCV 88.3 (79.4-94.8) fl MCH 28.7 (25.6-32.2) pg MCHC 32.5 (32.2-35.5) g/dl RDW Std Deviation 42.4 (36.4-46.3) fL Plt Count 299 (182-369) K/mm3 MPV 10.0 (9.4-12.3) fl Neut % (Auto) 88.4 H (34.0-71.1) % Lymph % (Auto) 7.1 L (19.3-51.7) % [place] % (Auto) 4.2 L (4.7-12.5) % Eos % (Auto) 0 L (0.7-5.8) Baso % (Auto) 0.1 (0.1-1.2) % Neut # (Auto) 13.14 H (1.56-6.13) K/mm3 Lymph # (Auto) 1.05 L (1.18-3.74) K/mm3 [place] # (Auto) 0.63 H (0.24-0.36) K/mm3 Eos # (Auto) 0.00 L (0.04-0.36) K/mm3 Baso # (Auto) 0.01 (0.01-0.08) K/mm3 Sodium 139 (136-145) mEq/L Potassium 3.6 (3.5-5.1) mEq/L Chloride 103 (98-107) mEq/L Carbon Dioxide 25 (21-32) mEq/L Anion Gap 14.6 (5-15) BUN 11 (7-18) mg/dL Creatinine 0.7 (0.55-1.02) mg/dL Est Cr Clr Drug Dosing 86.26 mL/min Estimated GFR (MDRD) > 60 (>60) mL/min BUN/Creatinine Ratio 15.7 (14-18) Glucose 128 H (70-99) mg/dL Calcium 8.6 (8.5-10.1) mg/dL Total Bilirubin 0.4 (0.2-1.0) mg/dL AST 13 L (15-37) U/L ALT 20 (14-59) U/L Alkaline Phosphatase 62 (46-116) U/L C-Reactive Protein 0.7 (<1.0) mg/dL Total Protein 7.4 (6.4-8.2) g/dl Albumin 3.9 (3.4-5.0) g/dl Globulin 3.5 gm/dL Albumin/Globulin Ratio 1.1 (1-2) Lipase 106 (73-393) U/L Urine Color Yellow (Yellow) Urine Appearance Slt cloudy H (Clear) Urine pH >=9.0 H (5.0-8.0) Ur Specific [place] 1.020 (1.005-1.030) Urine Protein Negative (Negative) Urine Glucose (UA) Negative (Negative) Urine Ketones Negative (Negative) Urine Occult Blood Negative (Negative) Urine Nitrite Negative (Negative) Urine Bilirubin Negative (Negative) Urine Urobilinogen 0.2 (0.2-1.0) Ur Leukocyte Esterase Negative (Negative) Urine HCG, Qual (NEGATIVE) 05/28/21 Range/Units 04:47 WBC (3.98-10.04) K/mm3 RBC (3.98-5.22) M/mm3 Hgb (11.2-15.7) gm/dl Hct (34.1-44.9) % MCV (79.4-94.8) fl MCH (25.6-32.2) pg MCHC (32.2-35.5) g/dl RDW Std Deviation (36.4-46.3) fL Plt Count (182-369) K/mm3 MPV (9.4-12.3) fl Neut % (Auto) (34.0-71.1) % Lymph % (Auto) (19.3-51.7) % [place] % (Auto) (4.7-12.5) % Eos % (Auto) (0.7-5.8) Baso % (Auto) (0.1-1.2) % Neut # (Auto) (1.56-6.13) K/mm3 Lymph # (Auto) (1.18-3.74) K/mm3 [place] # (Auto) (0.24-0.36) K/mm3 Eos # (Auto) (0.04-0.36) K/mm3 Baso # (Auto) (0.01-0.08) K/mm3 Sodium (136-145) mEq/L Potassium (3.5-5.1) mEq/L Chloride (98-107) mEq/L Carbon Dioxide (21-32) mEq/L Anion Gap (5-15) BUN (7-18) mg/dL Creatinine (0.55-1.02) mg/dL Est Cr Clr Drug Dosing mL/min Estimated GFR (MDRD) (>60) mL/min BUN/Creatinine Ratio (14-18) Glucose (70-99) mg/dL Calcium (8.5-10.1) mg/dL Total Bilirubin (0.2-1.0) mg/dL AST (15-37) U/L ALT (14-59) U/L Alkaline Phosphatase (46-116) U/L C-Reactive Protein (<1.0) mg/dL Total Protein (6.4-8.2) g/dl Albumin (3.4-5.0) g/dl Globulin gm/dL Albumin/Globulin Ratio (1-2) Lipase (73-393) U/L Urine Color (Yellow) Urine Appearance (Clear) Urine pH (5.0-8.0) Ur Specific [place] (1.005-1.030) Urine Protein (Negative) Urine Glucose (UA) (Negative) Urine Ketones (Negative) Urine Occult Blood (Negative) Urine Nitrite (Negative) Urine Bilirubin (Negative) Urine Urobilinogen (0.2-1.0) Ur Leukocyte Esterase (Negative) Urine HCG, Qual Negative (NEGATIVE) Result Diagrams: 05/28/21 04:37 05/28/21 04:37 Sepsis Event Note - Evaluation Sepsis Screening Result: No Definite Risk - Focused Exam Vital Signs: Vital Signs Temp Pulse Resp BP Pulse Ox 05/28/21 07:56 36.3 C 84 16 120/73 94 L 05/28/21 07:11 37.0 C 05/28/21 03:49 76 20 125/72 98 Problem List Initiated/Reviewed/Updated: Yes Orders Last 24hrs: Active Orders 24 hr Category Date Time Status Patient Status [ADT] Routine ADT 05/28/21 07:22 Active CORONAVIRUS COVID-19 SHEBA [MOLEC] Stat Lab 05/28/21 06:57 Received Sodium Chloride 0.9% [Saline Flush] Med 05/28/21 05:40 Active 10 ml FLUSH ONETIME PRN cefOXitin [Mefoxin in Dextrose,Iso-Osm 2 GM/50 ML] 2 gm Med 05/28/21 08:15 Ordered Premix Bag 1 bag IV ONETIME Schedule Procedure [COMM] Stat Oth 05/28/21 07:22 Ordered Medication Orders Cefoxitin Sodium 2 gm/ Premix 50 mls @ 100 mls/hr IV ONETIME ONE Stop: 05/28/21 08:44 Sodium Chloride (Sodium Chloride 0.9% 10 Ml Syringe) 10 ml FLUSH ONETIME PRN PRN Reason: Keep Vein Open Last Admin: 05/28/21 06:19 Dose: 10 ml Documented by: [id number] Assessment/Plan Comment:: acute appendicitis, plan for laparoscopic appendectomy - Mortality Measure Prognosis:: Good
--- NOTE | 2021-05-28 09:30 | PCM.POSTAN ---
POST ANESTHESIA ASSESSMENT - MENTAL STATUS Mental Status: Alert, Oriented - VITAL SIGNS Vital Signs: Last Vital Signs Temp 36.3 C 05/28/21 07:56 Pulse 84 05/28/21 07:56 Resp 16 05/28/21 07:56 BP 120/73 05/28/21 07:56 Pulse Ox 94 L 05/28/21 07:56 - RESPIRATORY Respiratory Status: Respiratory Rate WNL, Airway Patent, O2 Saturation Stable, Supplemental Oxygen - CARDIOVASCULAR CV Status: Pulse Rate WNL, Blood Pressure Stable - GASTROINTESTINAL GI Status: No Symptoms - PAIN Pain Score: 0 - POST OP HYDRATION Hydration Status: Adequate & Stable - OBSERVATIONS Free Text/Narrative:: no anesthesia complications noted
--- NOTE | 2021-05-28 09:32 | PCM.PREANE ---
Preanesthetic Assessment - Procedure Proposed Procedure: laparoscopic appendectomy - Anesthesia/Transfusion/Family Hx Anesthesia History: Prior Anesthesia Without Reaction Family History of Anesthesia Reaction: No Transfusion History: No Prior Transfusion(s) - Review of Systems General: Fatigue, Malaise Pulmonary: No Symptoms Cardiovascular: No Symptoms Gastrointestinal: Abdominal Pain Neurological: No Symptoms Other: Reports: None - Physical Assessment NPO Status Date: 05/27/21 NPO Status Time: 18:30 Vital Signs: Last Vital Signs Temp 36.3 C 05/28/21 07:56 Pulse 84 05/28/21 07:56 Resp 16 05/28/21 07:56 BP 120/73 05/28/21 07:56 Pulse Ox 94 L 05/28/21 07:56 Height: 1.55 m Weight: 90.718 kg ASA Class: 2 Mental Status: Alert & Oriented x3 Airway Class: Mallampati = 1 Dentition: Reports: Normal Dentition, Implants (front top) Thyro-Mental Finger Breadths: 3 Mouth Opening Finger Breadths: 3 ROM/Head Extension: Full Lungs: Clear to Auscultation, Normal Respiratory Effort Cardiovascular: Regular Rate, Regular Rhythm - Lab Values: Laboratory Last Values WBC 14.86 K/mm3 (3.98-10.04) H 05/28/21 04:37 RBC 4.71 M/mm3 (3.98-5.22) 05/28/21 04:37 Hgb 13.5 gm/dl (11.2-15.7) 05/28/21 04:37 Hct 41.6 % (34.1-44.9) 05/28/21 04:37 MCV 88.3 fl (79.4-94.8) 05/28/21 04:37 MCH 28.7 pg (25.6-32.2) 05/28/21 04:37 MCHC 32.5 g/dl (32.2-35.5) 05/28/21 04:37 RDW Std Deviation 42.4 fL (36.4-46.3) 05/28/21 04:37 Plt Count 299 K/mm3 (182-369) 05/28/21 04:37 MPV 10.0 fl (9.4-12.3) 05/28/21 04:37 Neut % (Auto) 88.4 % (34.0-71.1) H 05/28/21 04:37 Lymph % (Auto) 7.1 % (19.3-51.7) L 05/28/21 04:37 [place] % (Auto) 4.2 % (4.7-12.5) L 05/28/21 04:37 Eos % (Auto) 0 (0.7-5.8) L 05/28/21 04:37 Baso % (Auto) 0.1 % (0.1-1.2) 05/28/21 04:37 Neut # (Auto) 13.14 K/mm3 (1.56-6.13) H 05/28/21 04:37 Lymph # (Auto) 1.05 K/mm3 (1.18-3.74) L 05/28/21 04:37 [place] # (Auto) 0.63 K/mm3 (0.24-0.36) H 05/28/21 04:37 Eos # (Auto) 0.00 K/mm3 (0.04-0.36) L 05/28/21 04:37 Baso # (Auto) 0.01 K/mm3 (0.01-0.08) 05/28/21 04:37 Sodium 139 mEq/L (136-145) 05/28/21 04:37 Potassium 3.6 mEq/L (3.5-5.1) 05/28/21 04:37 Chloride 103 mEq/L (98-107) 05/28/21 04:37 Carbon Dioxide 25 mEq/L (21-32) 05/28/21 04:37 Anion Gap 14.6 (5-15) 05/28/21 04:37 BUN 11 mg/dL (7-18) 05/28/21 04:37 Creatinine 0.7 mg/dL (0.55-1.02) 05/28/21 04:37 Est Cr Clr Drug Dosing 86.26 mL/min 05/28/21 04:37 Estimated GFR (MDRD) > 60 mL/min (>60) 05/28/21 04:37 BUN/Creatinine Ratio 15.7 (14-18) 05/28/21 04:37 Glucose 128 mg/dL (70-99) H 05/28/21 04:37 Calcium 8.6 mg/dL (8.5-10.1) 05/28/21 04:37 Total Bilirubin 0.4 mg/dL (0.2-1.0) 05/28/21 04:37 AST 13 U/L (15-37) L 05/28/21 04:37 ALT 20 U/L (14-59) 05/28/21 04:37 Alkaline Phosphatase 62 U/L (46-116) 05/28/21 04:37 C-Reactive Protein 0.7 mg/dL (<1.0) 05/28/21 04:37 Total Protein 7.4 g/dl (6.4-8.2) 05/28/21 04:37 Albumin 3.9 g/dl (3.4-5.0) 05/28/21 04:37 Globulin 3.5 gm/dL 05/28/21 04:37 Albumin/Globulin Ratio 1.1 (1-2) 05/28/21 04:37 Lipase 106 U/L (73-393) 05/28/21 04:37 Urine Color Yellow (Yellow) 05/28/21 04:47 Urine Appearance Slt cloudy (Clear) H 05/28/21 04:47 Urine pH >=9.0 (5.0-8.0) H 05/28/21 04:47 Ur Specific [place] 1.020 (1.005-1.030) 05/28/21 04:47 Urine Protein Negative (Negative) 05/28/21 04:47 Urine Glucose (UA) Negative (Negative) 05/28/21 04:47 Urine Ketones Negative (Negative) 05/28/21 04:47 Urine Occult Blood Negative (Negative) 05/28/21 04:47 Urine Nitrite Negative (Negative) 05/28/21 04:47 Urine Bilirubin Negative (Negative) 05/28/21 04:47 Urine Urobilinogen 0.2 (0.2-1.0) 05/28/21 04:47 Ur Leukocyte Esterase Negative (Negative) 05/28/21 04:47 Urine HCG, Qual Negative (NEGATIVE) 05/28/21 04:47 SARS-CoV-2 RNA (SHEBA) Negative (NEGATIVE) 05/28/21 06:57 - Allergies Allergies/Adverse Reactions: Allergies Allergy/AdvReac Type Severity Reaction Status Date / Time bacitracin Allergy Itching Verified 05/28/21 07:11 sulfamethoxazole Allergy Rash Verified 05/28/21 07:11 [From Bactrim] trimethoprim [From Bactrim] Allergy Rash Verified 05/28/21 07:11 - Anesthesia Plan Pre-Op Medication Ordered: None - Acknowledgements Anesthesia Type Planned: General Anesthesia Pt an Appropriate Candidate for the Planned Anesthesia: Yes Alternatives and Risks of Anesthesia Discussed w Pt/Guardian: Yes Pt/Guardian Understands and Agrees with Anesthesia Plan: Yes PreAnesthesia Questionnaire HEENT History: Reports: Other (See Below) Other HEENT History: Pt wears glasses Cardiovascular History: Reports: None Respiratory History: Reports: None Gastrointestinal History: Reports: GERD Genitourinary History: Reports: None 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: Neurological History: Reports: None Psychiatric History: Reports: Anxiety, Depression Endocrine/Metabolic History: Reports: None, Obesity/BMI 30+ Hematologic History: Reports: None Immunologic History: Reports: None Oncologic (Cancer) History: Reports: None - Past Surgical History Head Surgeries/Procedures: Reports: None HEENT Surgical History: Reports: Adenoidectomy, Tonsillectomy, Other (See Below) Other HEENT Surgeries/Procedures: [place] teeth extraction GI Surgical History: Reports: Hernia, Inguinal Female Surgical History: Reports: Breast Biopsy, LEEP, Other (See Below) Dermatological Surgical History: Reports: Other (See Below) - SUBSTANCE USE Tobacco Use Status *Q: Never Tobacco User Recreational Drug Use History: No - HOME MEDS Home Medications: Home Meds Sertraline [Zoloft] 100 mg PO DAILY 09/24/20 [History] LORazepam [Ativan] 0.5 mg PO Q6HR PRN 05/28/21 [History] oxyCODONE 5 mg PO Q4H PRN #15 tab 05/28/21 [Rx] - CURRENT (IN HOUSE) MEDS Current Meds: Current Medications Fentanyl (Fentanyl 100 Mcg/2 Ml Sdv) 50 mcg IVPUSH Q5M PRN PRN Reason: Pain Hydromorphone HCl (Hydromorphone 0.5 Mg/0.5 Ml Syringe) 0.5 mg IVPUSH Q1H PRN PRN Reason: Pain Sodium Chloride (Sodium Chloride 0.9% 10 Ml Syringe) 10 ml FLUSH ONETIME PRN PRN Reason: Keep Vein Open Last Admin: 05/28/21 06:19 Dose: 10 ml Documented by: Discontinued Medications Bupivacaine HCl (Bupivacaine 0.5% 30 Ml Sdv) Confirm Administered Dose 30 ml .ROUTE .STK-MED ONE Stop: 05/28/21 07:39 Last Admin: 05/28/21 08:28 Dose: 30 ml Documented by: Diatrizoate Meglum/Diatrizoate Sod (Diatrizoate Meglumine/Diatrizoate Sodium 37% 120 Ml Bottle) 30 ml PO ONETIME ONE Stop: 05/28/21 05:36 Last Admin: 05/28/21 06:17 Dose: 60 ml Documented by: Fentanyl (Fentanyl 250 Mcg/5 Ml Sdv) Confirm Administered Dose 250 mcg .ROUTE .STK-MED ONE Stop: 05/28/21 07:55 Lidocaine HCl (Xylocaine-Mpf 1%) Confirm Administered Dose 4 mls @ as directed .ROUTE .STK-MED ONE Stop: 05/28/21 07:56 Cefoxitin Sodium 2 gm/ Premix 50 mls @ 100 mls/hr IV ONETIME ONE Stop: 05/28/21 08:44 Cefoxitin Sodium (Mefoxin In Dextrose,Iso-Osm 2 Gm/50 Ml) Confirm Administered Dose 50 mls @ as directed .ROUTE .STK-MED ONE Stop: 05/28/21 08:26 Lactated Ringer's (Ringers, Lactated) Confirm Administered Dose 1,000 mls @ as directed .ROUTE .STK-MED ONE Stop: 05/28/21 08:36 Iopamidol (Iopamidol 612 Mg/Ml 100 Ml Bottle) 100 ml IVPUSH ONETIME ONE Stop: 05/28/21 04:48 Last Admin: 05/28/21 06:17 Dose: 100 ml Documented by: Iopamidol (Iopamidol 612 Mg/Ml 50 Ml Sdv) 50 ml IVPUSH ONETIME ONE Stop: 05/28/21 04:48 Last Admin: 05/28/21 06:17 Dose: 25 ml Documented by: Ketorolac Tromethamine (Ketorolac 30 Mg/Ml Sdv) Confirm Administered Dose 30 mg .ROUTE .STK-MED ONE Stop: 05/28/21 08:41 Midazolam HCl (Midazolam 1 Mg/Ml 2 Ml Sdv) Confirm Administered Dose 2 mg .ROUTE .STK-MED ONE Stop: 05/28/21 07:55 Ondansetron HCl (Ondansetron 4 Mg/2 Ml Sdv) 4 mg IVPUSH ONETIME ONE Stop: 05/28/21 05:32 Last Admin: 05/28/21 05:41 Dose: 4 mg Documented by: Ondansetron HCl (Ondansetron 4 Mg/2 Ml Sdv) Confirm Administered Dose 4 mg .ROUTE .STK-MED ONE Stop: 05/28/21 07:55 Propofol (Propofol 200 Mg/20 Ml Sdv) Confirm Administered Dose 200 mg .ROUTE .STK-MED ONE Stop: 05/28/21 07:55 Rocuronium [place] (Rocuronium 50 Mg/5 Ml Vial) Confirm Administered Dose 50 mg .ROUTE .STK-MED ONE Stop: 05/28/21 07:55
--- NOTE | 2021-05-28 09:42 | PCM48HPAN ---
Post Anesthesia Note - EVALUATION WITHIN 48HRS OF ANESTHETIC Vital Signs in Normal Range: Yes Patient Participated in Evaluation: Yes Respiratory Function Stable: Yes Airway Patent: Yes Cardiovascular Function Stable: Yes Hydration Status Stable: Yes Pain Control Satisfactory: Yes Nausea and Vomiting Control Satisfactory: Yes Mental Status Recovered: Yes Vital Signs: Last Vital Signs Temp 36.4 C 05/28/21 09:35 Pulse 90 05/28/21 09:35 Resp 16 05/28/21 09:35 BP 113/65 05/28/21 09:35 Pulse Ox 91 L 05/28/21 09:35 - COMMENTS/OBSERVATIONS Free Text/Narrative:: no anesthesia complications noted
--- NOTE | 2021-05-28 09:50 | PCM.PRNOTE ---
- Free Text/Narrative Note: Date: 05/28/2021 Operation: laparoscopic appendectomy Indication: acute appendicitis Surgeon: Juan C Ramirez MD Antibiotic: 2 g cefoxitin IV pre-incision EBL: 550 cc DVT ppx: SCD Specimen: appendix Complication: significant hemoperitoneum noted after completion appendectomy, the most likely source seeming to be an inferior epigastric arterial injury from lateral trocar placement. Hemostasis was assured at the conclusion of the case. Findings: acute appendicitis without gangrene or perforation. Detailed Report: The patient was taken to the operating room and placed on the table in supine position. Time out was performed and general endotracheal anesthesia initiated. The left arm was tucked and abdomen was prepped and draped in usual sterile fashion. A Veress needle was placed in the left upper quadrant to establish pneumoperitoneum. Once pressure reached 15 mm Hg, air was aspirated with a needle and syringe inferior to the umbilicus. A bladed 12 mm trocar was placed at this site. A 5 mm 30 degree laparoscope was inserted into the abdomen. There was no apparent injury from Veress placement and the needle was withdrawn. No hemorrhage was noted from the insertion site on withdrawal. Additional 5 mm ports were placed under laparoscopic visualization, one at the left lower quadrant and one at the suprapubic area. The patient was placed in Trendelenburg and rotated toward the surgeon standing on the patient's left side. The appendix was identified and appeared inflamed without suppuration, gangrene or evidence of perforation. A window was made near the base of the appendix through the mesoappendix using the [place] Ligasure. The appendix was divided flush with the cecum using a 35 mm vascular staple load on a powered laparoscopic linear cutting stapler. The mesoappendix was divided using the Ligasure. The specimen was placed in an endocatch bag and removed through the umbilical site. After removal, there appeared to be more hemoperitoneum than expected, and on exploration with the laparoscope there was blood in the pelvis, left paracolic gutter and up around the left lobe of the liver and spleen. No clear source was apparent; no injury on the surface of the liver was noted from Veress insertion. All visualized bowel and mesentery appeared normal, including the staple line and dissection field. There was an abdominal wall hematoma around the left lateral trocar, but on removal there was no brisk bleeding noted. However, after careful inspection this seemed to be the most likely source. A total of 550 cc blood was suctioned from the abdomen during this portion of the case. A transfascial figure of eight 0 vicryl suture was placed using a laparoscopic suture passer enclosing the left lateral incision. The abdomen was monitored for a few more minutes with the laparoscope to rule out ongoing hemorrhage. Once I felt comfortable that there was no active bleeding, the umbilical trocar was removed. No bleeding was noted. This site was closed at fascia with 0 vicryl. The suprapubic port was pulled back partially to inspect for abdominal wall hemorrhage and no bleeding was noted. The trocar was pushed back in in order to release pneumoperitoneum. The port was removed and all skin incisions were closed with running subcuticular vicryl and dressed with dermabond. The patient tolerated the operation well and was clinically stable, with normal vital signs noted on arrival to PACU.
[2021-05-28 10:58] VITALS: BP 112/59; PULSE 77
== END | disposition home or self-care (01) ==
LOC: JD.ED 03:36 → JD.SDS 07:26
PROVIDERS: ATTEND Surgery
DX: K35.30 Acute appendicitis with localized peritonitis, without perforation or gangrene (principal); E66.9 Obesity, unspecified; F41.9 Anxiety disorder, unspecified; F32.9 Major depressive disorder, single episode, unspecified; Z01.812 Encounter for preprocedural laboratory examination; Z20.822 Contact with and (suspected) exposure to COVID-19; Z98.890 Other specified postprocedural states; Z88.8 Allergy status to other drugs, medicaments and biological substances; Z88.2 Allergy status to sulfonamides; Z79.899 Other long term (current) drug therapy; Z68.37 Body mass index [BMI] 37.0-37.9, adult
CPT/HCPCS: 36415; 44970; 74177; 80053; 81003; 81025; 83690; 85025; 86140; 87635; 96374; 99285; A9270; J0694; J1885; J2250; J2405; J2704; J3010; J3490; J7120; Q9963; Q9967; 00840; U0002

== ENCOUNTER 2022-09-12 06:40 | Day surgery (SDC) | payer OTHER ==
[~2022-09-12 06:40] MED LIST changes: -Bupivacaine 0.5% 30 ML SDV ONE; -Diatrizoate Meglumine/Diatrizoate Sodium 37% 120 ML Bottle PO ONE; -HYDROmorphone 0.5 MG/0.5 ML Syringe IVPUSH PRN; -Iopamidol 612 MG/ML 100 ML Bottle IVPUSH ONE; -Iopamidol 612 MG/ML 50 ML SDV IVPUSH ONE; -Ketorolac 30 MG/ML SDV ONE; -Lactated Ringers 1,000 ML ONE; -Lidocaine 1% 4 ML ONE; +Lidocaine 1%/Sod Bicarbonate in NS 8.4% 1 ML Syringe IDERM PRN; -Midazolam 1 MG/ML 2 ML SDV ONE; -Ondansetron 4 MG/2 ML SDV IVPUSH ONE; -Ondansetron 4 MG/2 ML SDV ONE; -Propofol 200 MG/20 ML SDV ONE; -Rocuronium 50 MG/5 ML Vial ONE; +Sodium Chloride 0.9% 10 ML Syringe FLUSH SCH; -cefOXitin 2 GM in Premix Bag 1 BAG IV ONE; -fentaNYL 100 MCG/2 ML SDV IVPUSH PRN; -fentaNYL 250 MCG/5 ML SDV ONE; -oxyCODONE 5 MG Tab PO STA
[2022-09-12] MEDS ORDERED: Scopolamine 1.5 MG Transdermal Patch TRDERM ONE (06:59)
[2022-09-12] MEDS ORDERED: Lactated Ringers 1,000 ML ONE (07:05)
[2022-09-12] MEDS ORDERED: Dexamethasone 4 MG/ML 5 ML MDV ONE (07:05)
[2022-09-12] MEDS ORDERED: Propofol 200 MG/20 ML SDV ONE (07:05)
[2022-09-12] MEDS ORDERED: Ondansetron 4 MG/2 ML SDV ONE (07:05)
[2022-09-12] MEDS ORDERED: fentaNYL 100 MCG/2 ML SDV ONE ×2 (07:05→08:25)
[2022-09-12] MEDS ORDERED: Rocuronium 50 MG/5 ML Vial ONE (07:05)
[2022-09-12] MEDS: Lactated Ringers 1,000 ML IV SCH ×2 (07:05→10:40)
[2022-09-12] MEDS ORDERED: Lidocaine 1% 30 ML SDV ONE (07:06)
[2022-09-12] MEDS ORDERED: Ketorolac 30 MG/ML SDV ONE (07:06)
[2022-09-12] MEDS ORDERED: Midazolam 1 MG/ML 2 ML SDV ONE (07:06)
[2022-09-12] MEDS ORDERED: Bupivacaine 0.5%/EPINEPHrine 1:200,000 50 ML MDV ONE (07:06)
[2022-09-12] MEDS ORDERED: Lidocaine 1% 4 ML ONE (07:06)
[2022-09-12] MEDS ORDERED: ceFAZolin 2 GM Vial ONE (07:11)
[2022-09-12] MEDS ORDERED: Bupivacaine 0.25%/EPINEPHrine 1:200,000 30 ML SDV ONE (07:28)
[2022-09-12] MEDS ORDERED: Bupivacaine 0.5% 30 ML SDV ONE (07:28)
[2022-09-12] MEDS ORDERED: Dexmedetomidine 200 MCG/2 ML SDV ONE (07:58)
[2022-09-12] MEDS ORDERED: Neostigmine Methylsulfate 10 MG/10 ML MDV ONE (07:58)
[2022-09-12] MEDS ORDERED: ePHEDrine 50 MG/ML SDV ONE (08:00)
[2022-09-12] MEDS ORDERED: Ketamine 500 mg/10 ML MDV ONE (08:08)
[2022-09-12] MEDS ORDERED: HYDROmorphone 0.5 MG/0.5 ML Syringe IVPUSH PRN (09:22)
[2022-09-12] MEDS ORDERED: fentaNYL 100 MCG/2 ML SDV IVPUSH PRN (09:22)
[2022-09-12] MEDS ORDERED: Ondansetron 4 MG/2 ML SDV IVPUSH PRN (09:22)
[2022-09-12] MEDS ORDERED: Acetaminophen/oxyCODONE 325-5 MG Tab PO PRN (10:13)
[2022-09-12 12:58] VITALS: BP 101/54; PULSE 88
== END 2022-09-12 12:22 | disposition home or self-care (01) ==
LOC: JD.SDS 06:40
PROVIDERS: ATTEND Obstetrics & Gynecology
DX: N87.9 Dysplasia of cervix uteri, unspecified (principal); N72 Inflammatory disease of cervix uteri; N80.03 Adenomyosis of the uterus; F33.0 Major depressive disorder, recurrent, mild; F41.9 Anxiety disorder, unspecified; E66.9 Obesity, unspecified; K21.9 Gastro-esophageal reflux disease without esophagitis; Z98.890 Other specified postprocedural states; Z88.2 Allergy status to sulfonamides; Z79.899 Other long term (current) drug therapy
CPT/HCPCS: 36415; 80048; 85025; 86850; 86900; 86901; A9270-GY; J0690; J1100; J1170; J1885; J2250; J2405; J2704; J2710; J3010; J3490; J7120